=== PATIENT | male | born 1950 | race Hispanic/Latino ===

== ENCOUNTER 2022-01-21 21:07 | Inpatient (IN) | payer MEDICARE, OTHER ==
--- OUTSIDE RECORDS SUMMARY | 2022-01-21 21:11 | XMS REPORT | Continuity of Care Document ---
:1950 Author Organization [facility] t Address [address] [place] [address] Care Team Providers Name Role Phone Bindu Fisher Attending Clinician Unavailable Dwain_Nancy Attending Clinician Unavailable Dwain_R Admitting Clinician Unavailable Payers Payer Name Policy Type Policy Effective Date Expiration Date Sour ce Number [address] 2020 (MEDICARE 00:00:00 REPLACEMENT HMO) [address] 2020 [facility] 00:00:[address] 2020 [facility] 00:00:[address] 2020 [facility] 00:00:00 [facility] Problems Condition Condition Condition Status Onset Resolution Last Treating Co mments Source Name Details Category Date Date Treatment Clinician Date [id number] Temporary Problem Com mon low [facility] platelet - [facility] count [facility] Hearing Decreased Problem Commo n loss hearing of Spirit left ear [facility] Hyperlipid Hyperlipid Problem C [facility] emia emia [facility] [id number] Acute Problem Common seasonal [facility] allergic - [facility] rhinitis [facility] [id number] Decreased Problem Com mon hearing of [facility] right ear [facility] [id number] Gastroesop Problem Co mmon hageal [facility] reflux - [facility] disease [facility] esophagiti 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 Social History Social Habit Start Date Stop Date Quantity Comments Source History of Tobacco Use Co mmon [facility] Sex Assigned At Com mon [facility] Smoking Status Start Date Stop Date Source Never Smoker Common [facility] Medications Ordered Filled Start Stop Current Ordering Indication Dosage Frequency Signature Comments Components Source Medication Medication Date Date Medication? Clinician (SIG) Name Name Neomycin-Po Neomycin-Po No 4{drops TID Neomycin-P lymyxin-HC lymyxin-HC 3-09 _into_a olymyxin-H 3.576535-1 3.584905-0 00:00: ffected C 00 _ear} 3.5- 1 Neomycin-Po Neomycin-Po 2020- No 4{drops TID Neomycin-P lymyxin-HC lymyxin-HC 3-09 _into_a olymyxin-H 3.560655-3 3.525017-4 00:00: ffected C 00 _ear} 3.5- 1 Neomycin-Po Neomycin-Po 2020- No 4{drops TID Neomycin-P lymyxin-HC lymyxin-HC 3-09 _into_a olymyxin-H 3.558898-1 3.546512-6 00:00: ffected C 00 _ear} 3.5-- 1 Neomycin-Po Neomycin-Po 2020-0 No 4{drops TID Neomycin-P lymyxin-HC lymyxin-HC 3-09 _into_a olymyxin-H 3.520482-1 3.590488-0 00:00: ffected C 00 _ear} 3.5-- 1 Neomycin-Po Neomycin-Po 2020-0 No 4{drops TID Neomycin-P lymyxin-HC lymyxin-HC 3-09 _into_a olymyxin-H 3.580206-1 3.5-79614-5 00:00: ffected C 00 _ear} 3.5-- 1 Neomycin-Po Neomycin-Po 2020-0 No 4{drops TID Neomycin-P lymyxin-HC lymyxin-HC 3-09 _into_a olymyxin-H 3.5-93147-2 3.533662-2 00:00: ffected C 00 _ear} 3.5-- 1 Neomycin-Po Neomycin-Po 2020-0 No 4{drops TID Neomycin-P lymyxin-HC lymyxin-HC 3-09 _into_a olymyxin-H 3.540183-6 3.594065-5 00:00: ffected C 00 _ear} 3.5-- Neomycin-Po Neomycin-Po 2020-0 No 4{drops TID Neomycin-P lymyxin-HC lymyxin-HC 3-09 _into_a olymyxin-H 3.533106-2 3.5-82917-0 00:00: ffected C 00 _ear} 3.5-- Neomycin-Po Neomycin-Po 2020-0 No 4{drops TID Neomycin-P lymyxin-HC lymyxin-HC 3-09 _into_a olymyxin-H 3.544906-2 3.5-16119-7 00:00: ffected C 00 _ear} 3.5-- 1 Neomycin-Po Neomycin-Po 2020-0 No 4{drops TID Neomycin-P lymyxin-HC lymyxin-HC 3-09 _into_a olymyxin-H 3.554856-3 3.5-30141-6 00:00: ffected C 00 _ear} 3.5-- 1 Triamcinolo Triamcinolo Yes Na Fisher 1 Common ne ne 7-24 applicatio Spirit Acetonide Acetonide 00:00: n to - C HI 00 affected [facility] Triamcinolo Triamcinolo 2018- No 1{appli BID Triamcinol ne ne 7-24 cation_ one Acetonide Acetonide 00:00: to_affe Acetonide 0.1 % 0.1 % 00 cted_ar 0.1 % ea} Triamcinolo Triamcinolo 2019-0 No 1{appli BID Triamcinol ne ne 7-24 cation_ one Acetonide Acetonide 00:00: to_affe Acetonide 0.1 % 0.1 % 00 cted_ar 0.1 % ea} Triamcinolo Tricinolo 2019-0 No 1{appli BID Triamcinol ne ne 7-24 cation_ one Acetonide Acetonide 00:00: to_affe Acetonide 0.1 % 0.1 % 00 cted_ar 0.1 % ea} Kenalog Kenalog 2018-0 No 40mg Common (Triamcinol (Triamcinol 7-24 S pirit one) one) 00:00: - [facility] 2018-0 No 1{appli BID Triamcinol ne ne 7-24 cation_ one Acetonide Acetonide 00:00: to_affe Acetonide 0.1 % 0.1 % 00 cted_ar 0.1 % ea} Kenalog Kenalog 2018-0 No 40mg Common (Triamcinol (Triamcinol 7-24 S pirit one) one) 00:00: - [facility] 2018-0 No 1{appli BID Triamcinol ne ne 7-24 cation_ one Acetonide Acetonide 00:00: to_affe Acetonide 0.1 % 0.1 % 00 cted_ar 0.1 % ea} Kenalog Kenalog 2018-0 No 40mg Common (Triamcinol (Triamcinol 7-24 S pirit one) one) 00:00: - [facility] 2018-0 No 1{appli BID Triamcinol ne ne 7-24 cation_ one Acetonide Acetonide 00:00: to_affe Acetonide 0.1 % 0.1 % 00 cted_ar 0.1 % ea} Kenalog Kenalog 2019-0 No 40mg Common (Triamcinol (Triamcinol 7-24 S pirit one) one) 00:00: - [facility] 2019-0 No 1{appli BID Triamcinol ne ne 7-24 cation_ one Acetonide Acetonide 00:00: to_affe Acetonide 0.1 % 0.1 % 00 cted_ar 0.1 % ea} Kenalog Kenalog No 40mg Common (Triamcinol (Triamcinol 7-24 S pirit one) one) 00:00: - [facility]I 00 [facility] No 1{appli BID Triamcinol ne ne 7-24 cation_ one Acetonide Acetonide 00:00: to_affe Acetonide 0.1 % 0.1 % 00 cted_ar 0.1 % ea} Kenalog Kenalog No 40mg Common (Triamcinol (Triamcinol 7-24 S pirit one) one) 00:00: - [facility]I 00 [facility] No 1{appli BID Triamcinol ne ne 7-24 cation_ one Acetonide Acetonide 00:00: to_affe Acetonide 0.1 % 0.1 % 00 cted_ar 0.1 % ea} Kenalog Zacharyalog No 40mg Common (Triamcinol (Triamcinol 7-24 S pirit one) one) 00:00: - [facility] No 1{appli BID Triamcinol ne ne 7-24 cation_ one Acetonide Acetonide 00:00: to_affe Acetonide 0.1 % 0.1 % 00 cted_ar 0.1 % ea} Cetirizine Cetirizine Yes Na Fisher 1 tablet Common HCl HCl [facility] Flonase Flonase Yes Na Fisher 2 spray in Common each Spirit nostril [facility] Crestor Crestor Yes Na Fisher 1 tablet Co mmon [facility] Paroxetine Paroxetine Yes Na Fisher TAKE ONE Common HCl HCl TABLET BY Spirit MOUTH ONCE - CHI DAILY [facility] Pantoprazol Pantoprazol Yes Na Fisher 1 tablet Common e Sodium e Sodium [facility] Losartan Losartan Yes Na Fisher 1 tablet Common Potassium Potassium Spiri t [facility] Losartan Losartan Yes Na Fisher 1 tablet Common Potassium Potassium Spiri t - [facility] Cetirizine Cetirizine No 1{table Cetirizine HCl 10 MG HCl 10 MG t} HCl 10 MG Cetirizine Cetirizine No 1{table QD Cetirizine HCl 10 MG HCl 10 MG t} HCl 10 MG Losartan Losartan No 1{table QD Losartan Potassium Potassium t} Potassium 50 MG 50 MG 50 MG Flonase 50 Flonase 50 No 2{spray QD Flonase 50 MCG/ACT MCG/ACT _in_eac MCG/ACT h_nostr il} PARoxetine PARoxetine No QD PARoxetine HCl 20MG HCl 20MG HCl 20MG Pantoprazol Pantoprazol No 1{table QD Pantoprazo e Sodium 40 e Sodium 40 t} le Sodium MG MG 40 MG Losartan Losartan No 1{table QD Losartan Potassium Potassium t} Potassium 100 MG 100 MG 100 MG Rosuvastati Rosuvastati No Rosuvastat n Calcium n Calcium in Calcium 20 MG 20 MG 20 MG Crestor 20 Crestor 20 No 1{table QD Crestor 20 MG MG t} MG Pantoprazol Pantoprazol No Pantoprazo e Sodium 40 e Sodium 40 le Sodium MG MG 40 MG Flonase 50 Flonase 50 No 2{spray QD Flonase 50 MCG/ACT MCG/ACT _in_eac MCG/ACT h_nostr il} Cetirizine Cetirizine No 1{table Cetirizine HCl 10 MG HCl 10 MG t} HCl 10 MG Cetirizine Cetirizine No 1{table QD Cetirizine HCl 10 MG HCl 10 MG t} HCl 10 MG Losartan Losartan No 1{table QD Losartan Potassium Potassium t} Potassium 50 MG 50 MG 50 MG Flonase 50 Flonase 50 No 2{spray QD Flonase 50 MCG/ACT MCG/ACT _in_eac MCG/ACT h_nostr il} PARoxetine PARoxetine No QD PARoxetine HCl 20MG HCl 20MG HCl 20MG Pantoprazol Pantoprazol No 1{table QD Pantoprazo e Sodium 40 e Sodium 40 t} le Sodium MG MG 40 MG Losartan Losartan No 1{table QD Losartan Potassium Potassium t} Potassium 100 MG 100 MG 100 MG Rosuvastati Rosuvastati No Rosuvastat n Calcium n Calcium in Calcium 20 MG 20 MG 20 MG Crestor 20 Crestor 20 No 1{table QD Crestor 20 MG MG t} MG Pantoprazol Pantoprazol No Pantoprazo e Sodium 40 e Sodium 40 le Sodium MG MG 40 MG Flonase 50 Flonase 50 No 2{spray QD Flonase 50 MCG/ACT MCG/ACT _in_eac MCG/ACT h_nostr il} Pantoprazol Pantoprazol No Pantoprazo e Sodium 40 e Sodium 40 le Sodium MG MG 40 MG Flonase 50 Flonase 50 No 2{spray QD Flonase 50 MCG/ACT MCG/ACT _in_eac MCG/ACT h_nostr il} Rosuvastati Rosuvastati No Rosuvastat n Calcium n Calcium in Calcium 20 MG 20 MG 20 MG PARoxetine PARoxetine No QD PARoxetine HCl 20MG HCl 20MG HCl 20MG Pantoprazol Pantoprazol No 1{table QD Pantoprazo e Sodium 40 e Sodium 40 t} le Sodium MG MG 40 MG Crestor 20 Crestor 20 No 1{table QD Crestor 20 MG MG t} MG Losartan Losartan No Losartan Potassium Potassium Potassium 100 MG 100 MG 100 MG Flonase 50 Flonase 50 No 2{spray QD Flonase 50 MCG/ACT MCG/ACT _in_eac MCG/ACT h_nostr il} Losartan Losartan No 1{table QD Losartan Potassium Potassium t} Potassium 100 MG 100 MG 100 MG Losartan Losartan No 1{table QD Losartan Potassium Potassium t} Potassium 50 MG 50 MG 50 MG Cetirizine Cetirizine No 1{table Cetirizine HCl 10 MG HCl 10 MG t} HCl 10 MG Cetirizine Cetirizine No 1{table QD Cetirizine HCl 10 MG HCl 10 MG t} HCl 10 MG Pantoprazol Pantoprazol No Pantoprazo e Sodium 40 e Sodium 40 le Sodium MG MG 40 MG Flonase 50 Flonase 50 No 2{spray QD Flonase 50 MCG/ACT MCG/ACT _in_eac MCG/ACT h_nostr il} Rosuvastati Rosuvastati No Rosuvastat n Calcium n Calcium in Calcium 20 MG 20 MG 20 MG PARoxetine PARoxetine No QD PARoxetine HCl 20MG HCl 20MG HCl 20MG Pantoprazol Pantoprazol No 1{table QD Pantoprazo e Sodium 40 e Sodium 40 t} le Sodium MG MG 40 MG Crestor 20 Crestor 20 No 1{table QD Crestor 20 MG MG t} MG Losartan Losartan No Losartan Potassium Potassium Potassium 100 MG 100 MG 100 MG Flonase 50 Flonase 50 No 2{spray QD Flonase 50 MCG/ACT MCG/ACT _in_eac MCG/ACT h_nostr il} Losartan Losartan No 1{table QD Losartan Potassium Potassium t} Potassium 100 MG 100 MG 100 MG Losartan Losartan No 1{table QD Losartan Potassium Potassium t} Potassium 50 MG 50 MG 50 MG Cetirizine Cetirizine No 1{table Cetirizine HCl 10 MG HCl 10 MG t} HCl 10 MG Cetirizine Cetirizine No 1{table QD Cetirizine HCl 10 MG HCl 10 MG t} HCl 10 MG Losartan Losartan No Losartan Potassium Potassium Potassium 100 MG 100 MG 100 MG Losartan Losartan No 1{table QD Losartan Potassium Potassium t} Potassium 50 MG 50 MG 50 MG Losartan Losartan No 1{table QD Losartan Potassium Potassium t} Potassium 100 MG 100 MG 100 MG Rosuvastati Rosuvastati No Rosuvastat n Calcium n Calcium in Calcium 20 MG 20 MG 20 MG Crestor 20 Crestor 20 No 1{table QD Crestor 20 MG MG t} MG Pantoprazol Pantoprazol No 1{table QD Pantoprazo e Sodium 40 e Sodium 40 t} le Sodium MG MG 40 MG Cetirizine Cetirizine No 1{table QD Cetirizine HCl 10 MG HCl 10 MG t} HCl 10 MG Flonase 50 Flonase 50 No 2{spray QD Flonase 50 MCG/ACT MCG/ACT _in_eac MCG/ACT h_nostr il} Flonase 50 Flonase 50 No 2{spray QD Flonase 50 MCG/ACT MCG/ACT _in_eac MCG/ACT h_nostr il} PARoxetine PARoxetine No QD PARoxetine HCl 20MG HCl 20MG HCl 20MG Pantoprazol Pantoprazol No Pantoprazo e Sodium 40 e Sodium 40 le Sodium MG MG 40 MG Cetirizine Cetirizine No 1{table Cetirizine HCl 10 MG HCl 10 MG t} HCl 10 MG Losartan Losartan No Losartan Potassium Potassium Potassium 100 MG 100 MG 100 MG Losartan Losartan No 1{table QD Losartan Potassium Potassium t} Potassium 50 MG 50 MG 50 MG Crestor 20 Crestor 20 No 1{table QD Crestor 20 MG MG t} MG Rosuvastati Rosuvastati No Rosuvastat n Calcium n Calcium in Calcium 20 MG 20 MG 20 MG Losartan Losartan No 1{table QD Losartan Potassium Potassium t} Potassium 100 MG 100 MG 100 MG Pantoprazol Pantoprazol No 1{table QD Pantoprazo e Sodium 40 e Sodium 40 t} le Sodium MG MG 40 MG Cetirizine Cetirizine No 1{table QD Cetirizine HCl 10 MG HCl 10 MG t} HCl 10 MG Flonase 50 Flonase 50 No 2{spray QD Flonase 50 MCG/ACT MCG/ACT _in_eac MCG/ACT h_nostr il} Flonase 50 Flonase 50 No 2{spray QD Flonase 50 MCG/ACT MCG/ACT _in_eac MCG/ACT h_nostr il} PARoxetine PARoxetine No QD PARoxetine HCl 20MG HCl 20MG HCl 20MG Pantoprazol Pantoprazol No Pantoprazo e Sodium 40 e Sodium 40 le Sodium MG MG 40 MG Cetirizine Cetirizine No 1{table Cetirizine HCl 10 MG HCl 10 MG t} HCl 10 MG Flonase 50 Flonase 50 No 2{spray QD Flonase 50 MCG/ACT MCG/ACT _in_eac MCG/ACT h_nostr il} Cetirizine Cetirizine No 1{table QD Cetirizine HCl 10 MG HCl 10 MG t} HCl 10 MG Losartan Losartan No Losartan Potassium Potassium Potassium 100 MG 100 MG 100 MG Rosuvastati Rosuvastati No Rosuvastat n Calcium n Calcium in Calcium 20 MG 20 MG 20 MG Crestor 20 Crestor 20 No 1{table QD Crestor 20 MG MG t} MG Losartan Losartan No 1{table QD Losartan Potassium Potassium t} Potassium 100 MG 100 MG 100 MG PARoxetine PARoxetine No QD PARoxetine HCl 20MG HCl 20MG HCl 20MG Pantoprazol Pantoprazol No 1{table QD Pantoprazo e Sodium 40 e Sodium 40 t} le Sodium MG MG 40 MG Flonase 50 Flonase 50 No 2{spray QD Flonase 50 MCG/ACT MCG/ACT _in_eac MCG/ACT h_nostr il} PARoxetine PARoxetine No QD PARoxetine HCl 20MG HCl 20MG HCl 20MG Losartan Losartan No 1{table QD Losartan Potassium Potassium t} Potassium 50 MG 50 MG 50 MG Pantoprazol Pantoprazol No Pantoprazo e Sodium 40 e Sodium 40 le Sodium MG MG 40 MG Cetirizine Cetirizine No 1{table Cetirizine HCl 10 MG HCl 10 MG t} HCl 10 MG Flonase 50 Flonase 50 No 2{spray QD Flonase 50 MCG/ACT MCG/ACT _in_eac MCG/ACT h_nostr il} Cetirizine Cetirizine No 1{table QD Cetirizine HCl 10 MG HCl 10 MG t} HCl 10 MG Losartan Losartan No Losartan Potassium Potassium Potassium 100 MG 100 MG 100 MG Rosuvastati Rosuvastati No Rosuvastat n Calcium n Calcium in Calcium 20 MG 20 MG 20 MG Crestor 20 Crestor 20 No 1{table QD Crestor 20 MG MG t} MG Losartan Losartan No 1{table QD Losartan Potassium Potassium t} Potassium 100 MG 100 MG 100 MG PARoxetine PARoxetine No QD PARoxetine HCl 20MG HCl 20MG HCl 20MG Pantoprazol Pantoprazol No 1{table QD Pantoprazo e Sodium 40 e Sodium 40 t} le Sodium MG MG 40 MG Flonase 50 Flonase 50 No 2{spray QD Flonase 50 MCG/ACT MCG/ACT _in_eac MCG/ACT h_nostr il} PARoxetine PARoxetine No QD PARoxetine HCl 20MG HCl 20MG HCl 20MG Losartan Losartan No 1{table QD Losartan Potassium Potassium t} Potassium 50 MG 50 MG 50 MG Pantoprazol Pantoprazol No Pantoprazo e Sodium 40 e Sodium 40 le Sodium MG MG 40 MG Cetirizine Cetirizine No 1{table Cetirizine HCl 10 MG HCl 10 MG t} HCl 10 MG Flonase 50 Flonase 50 No 2{spray QD Flonase 50 MCG/ACT MCG/ACT _in_eac MCG/ACT h_nostr il} Cetirizine Cetirizine No 1{table QD Cetirizine HCl 10 MG HCl 10 MG t} HCl 10 MG Losartan Losartan No Losartan Potassium Potassium Potassium 100 MG 100 MG 100 MG Rosuvastati Rosuvastati No Rosuvastat n Calcium n Calcium in Calcium 20 MG 20 MG 20 MG Crestor 20 Crestor 20 No 1{table QD Crestor 20 MG MG t} MG Losartan Losartan No 1{table QD Losartan Potassium Potassium t} Potassium 100 MG 100 MG 100 MG PARoxetine PARoxetine No QD PARoxetine HCl 20MG HCl 20MG HCl 20MG Pantoprazol Pantoprazol No 1{table QD Pantoprazo e Sodium 40 e Sodium 40 t} le Sodium MG MG 40 MG Flonase 50 Flonase 50 No 2{spray QD Flonase 50 MCG/ACT MCG/ACT _in_eac MCG/ACT h_nostr il} PARoxetine PARoxetine No QD PARoxetine HCl 20MG HCl 20MG HCl 20MG Losartan Losartan No 1{table QD Losartan Potassium Potassium t} Potassium 50 MG 50 MG 50 MG Pantoprazol Pantoprazol No Pantoprazo e Sodium 40 e Sodium 40 le Sodium MG MG 40 MG Cetirizine Cetirizine No 1{table Cetirizine HCl 10 MG HCl 10 MG t} HCl 10 MG Losartan Losartan No 1{table QD Losartan Potassium Potassium t} Potassium 50 MG 50 MG 50 MG Cetirizine Cetirizine No 1{table QD Cetirizine HCl 10 MG HCl 10 MG t} HCl 10 MG Rosuvastati Rosuvastati No Rosuvastat n Calcium n Calcium in Calcium 20 MG 20 MG 20 MG Cetirizine Cetirizine No 1{table Cetirizine HCl 10 MG HCl 10 MG t} HCl 10 MG Flonase 50 Flonase 50 No 2{spray QD Flonase 50 MCG/ACT MCG/ACT _in_eac MCG/ACT h_nostr il} Losartan Losartan No 1{table QD Losartan Potassium Potassium t} Potassium 100 MG 100 MG 100 MG PARoxetine PARoxetine No QD PARoxetine HCl 20MG HCl 20MG HCl 20MG Pantoprazol Pantoprazol No Pantoprazo e Sodium 40 e Sodium 40 le Sodium MG MG 40 MG Flonase 50 Flonase 50 No 2{spray QD Flonase 50 MCG/ACT MCG/ACT _in_eac MCG/ACT h_nostr il} Pantoprazol Pantoprazol No 1{table QD Pantoprazo e Sodium 40 e Sodium 40 t} le Sodium MG MG 40 MG Immunizations Ordered Immunization Filled Immunization Date Status Commen ts Source Name Name FluADOLFO FluAD 2021-01-23 Completed [facility] 11:27:00 [facility] FluAD FluAD 2021-01-23 Completed [facility] 11:27:00 - [facility] FluAD FluAD 2021-01-23 Completed [facility] 11:27:00 - [facility] FluAD FluAD 2021-01-23 Completed [facility] 11:27:00 - [facility] FluAD FluAD 2021-01-23 Completed [facility] 11:27:00 - [facility] FluAD FluAD 2021-01-23 Completed [facility] 11:27:00 - [facility] FluAD FluAD 2021-01-23 Completed [facility] 11:27:00 - [facility] FluAD FluAD 2021-01-23 Completed [facility] 11:27:00 - [facility] FluAD FluAD 2021-01-23 Completed [facility] 11:27:00 - [facility] FLUZONE HIGH DOSE FLUZONE HIGH DOSE 2020-01-19 Completed [facility] OVER 65 OVER 65 10:37:00 - [facility] FLUZONE HIGH DOSE FLUZONE HIGH DOSE 2020-01-19 Completed [facility] OVER 65 OVER 65 10:37:00 [facility] FLUZONE HIGH DOSE FLUZONE HIGH DOSE 2020-01-19 Completed [facility] OVER 65 OVER 65 10:37:00 - [facility] FLUZONE HIGH DOSE FLUZONE HIGH DOSE 2020-01-19 Completed [facility] OVER 65 OVER 65 10:37:00 - [facility] FLUZONE HIGH DOSE FLUZONE HIGH DOSE 2020-01-19 Completed [facility] OVER 65 OVER 65 10:37:00 - [facility] FLUZONE HIGH DOSE FLUZONE HIGH DOSE 2020-01-19 Completed [facility] OVER 65 OVER 65 10:37:00 - [facility] FLUZONE HIGH DOSE FLUZONE HIGH DOSE 2020-01-19 Completed [facility] OVER 65 OVER 65 10:37:00 - [facility] FLUZONE HIGH DOSE FLUZONE HIGH DOSE 2020-01-19 Completed [facility] OVER 65 OVER 65 10:37:00 [facility] FLUZONE HIGH DOSE FLUZONE HIGH DOSE 2020-01-19 Completed [facility] OVER 65 OVER 65 10:37:00 - [facility] FLUZONE HIGH DOSE FLUZONE HIGH DOSE 2020-01-19 Completed [facility] OVER 65 OVER 65 10:37:00 - [facility] Tdap - Tdap - 2018-11-24 Completed [facility] 14:05:00 - [facility] Tdap - Tdap - 2018-11-24 Completed [facility] 14:05:00 - [facility] Tdap - Tdap - 2018-11-24 Completed [facility] 14:05:00 - [facility] Tdap - Tdap - 2018-11-24 Completed [facility] 14:05:00 - [facility] Tdap - Tdap - 2018-11-24 Completed [facility] 14:05:00 - [facility] Tdap - Tdap - 2018-11-24 Completed [facility] 14:05:00 - [facility] Tdap - Tdap - 2018-11-24 Completed [facility] 14:05:00 - [facility] Tdap - Tdap - 2018-11-24 Completed [facility] 14:05:00 - [facility] Tdap - Tdap - 2018-11-24 Completed [facility] 14:05:00 - [facility] Tdap - Tdap - 2018-11-24 Completed [facility] 14:05:00 - [facility] FLUZONE HIGH DOSE FLUZONE HIGH DOSE 2018-11-24 Completed [facility] OVER 65 OVER 65 14:04:00 - [facility] FLUZONE HIGH DOSE FLUZONE HIGH DOSE 2018-11-24 Completed [facility] OVER 65 OVER 65 14:04:00 - [facility] FLUZONE HIGH DOSE FLUZONE HIGH DOSE 2018-11-24 Completed [facility] OVER 65 OVER 65 14:04:00 - [facility] FLUZONE HIGH DOSE FLUZONE HIGH DOSE 2018-11-24 Completed [facility] OVER 65 OVER 65 14:04:00 - [facility] FLUZONE HIGH DOSE FLUZONE HIGH DOSE 2018-11-24 Completed [facility] OVER 65 OVER 65 14:04:00 - [facility] FLUZONE HIGH DOSE FLUZONE HIGH DOSE 2018-11-24 Completed [facility] OVER 65 OVER 65 14:04:00 - [facility] FLUZONE HIGH DOSE FLUZONE HIGH DOSE 2018-11-24 Completed [facility] OVER 65 OVER 65 14:04:00 - [facility] FLUZONE HIGH DOSE FLUZONE HIGH DOSE 2018-11-24 Completed [facility] OVER 65 OVER 65 14:04:00 - [facility] FLUZONE HIGH DOSE FLUZONE HIGH DOSE 2018-11-24 Completed [facility] OVER 65 OVER 65 14:04:00 - [facility] FLUZONE HIGH DOSE FLUZONE HIGH DOSE 2018-11-24 Completed [facility] OVER 65 OVER 65 14:04:00 - [facility] Vital Signs Vital Name Observation Time Observation Value Comments Source height 2021-08-07 13:20:00 69 [in_i] Common [facility] weight 2021-08-07 13:20:00 200.4 [lb_av] [facility] temperature 2021-08-07 13:20:00 98.0 [degF] [facility] bmi 2021-08-07 13:20:00 29.59 kg/m2 [facility] oximetry 2021-08-07 13:20:00 97 % [facility] respiratory rate 2021-08-07 13:20:00 16 /min Comm on [facility] blood pressure 2021-08-07 13:20:00 136 mm[Hg] Common [facility] - systolic [facility] blood pressure 2021-08-07 13:20:00 80 mm[Hg] Common [facility] - diastolic [facility] height 2021-04-27 11:20:00 69 [in_i] [facility] weight 2021-04-27 11:20:00 202.2 [lb_av] [facility] temperature 2021-04-27 11:20:00 97.7 [degF] [facility] bmi 2021-04-27 11:20:00 29.86 kg/m2 [facility] oximetry 2021-04-27 11:20:00 96 % [facility] respiratory rate 2021-04-27 11:20:00 16 /min Comm on [facility] blood pressure 2021-04-27 11:20:00 130 mm[Hg] [facility] - systolic [facility] blood pressure 2021-04-27 11:20:00 80 mm[Hg] [facility] - diastolic [facility] height 2021-01-23 11:40:00 69 [in_i] Common S pirit [facility] weight 2021-01-23 11:40:00 200 [lb_av] [facility] temperature 2021-01-23 11:40:00 97 [degF] Common S pirit [facility] bmi 2021-01-23 11:40:00 29.53 kg/m2 Common S [facility] oximetry 2021-01-23 11:40:00 96 % Common [facility] blood pressure 2021-01-23 11:40:00 139 mm[Hg] Common [facility] - systolic [facility] blood pressure 2021-01-23 11:40:00 85 mm[Hg] [facility] - diastolic [facility] height 2021-01-23 10:00:00 69 [in_i] Common [facility] weight 2021-01-23 10:00:00 200 [lb_av] Common [facility] temperature 2021-01-23 10:00:00 97 [degF] Common [facility] bmi 2021-01-23 10:00:00 29.53 kg/m2 Common [facility] oximetry 2021-01-23 10:00:00 96 % [facility] respiratory rate 2021-01-23 10:00:00 18 /min [facility] [facility] blood pressure 2021-01-23 10:00:00 139 mm[Hg] [facility] - [facility] blood pressure 2021-01-23 10:00:00 85 mm[Hg] [facility] - diastolic [facility] Procedures This patient has no known procedures. Encounters Start End Encounter Admission Attending Care Care Encounter Source Date/Time Date/Time Type Type Clinicians Facility Department ID 2021-11-22 Outpatient Fisher, Na STLMLC STLMLC [id number] 2 Common 14:40:00 [facility] 2021-09-25 Outpatient Fisher, Na STLMLC STLMLC [id number] 2 Common 13:01:00 [facility] 2021-06-26 Outpatient Fisher, Na STLMLC STLMLC [id number] 2 Common 11:20:01 [facility] 2021-04-11 Outpatient Fisher, Na STLMLC STLMLC [id number] 2 Common 14:06:06 [id number] [facility] 2021-04-11 Outpatient Fisher, Na STLMLC STLMLC [id number] 2 Common 13:34:54 [id number] [facility] 2021-04-11 Outpatient Fisher, Na STLMLC STLMLC [id number] 2 Common 12:52:55 [id number] [facility] 2021-04-11 Outpatient Fisher, Na STLMLC STLMLC [id number] 2 Common 12:38:07 [id number] [facility] 2021-04-11 Outpatient Fisher, Na STLMLC STLMLC [id number] 2 Common 12:36:41 [id number] [facility] 2021-04-11 Outpatient Fisher, Na STLMLC STLMLC [id number] 2 Common 12:22:41 [id number] [facility] 2021-04-11 Outpatient Fisher, Na STLMLC STLMLC [id number] 2 Common 11:19:25 [id number] [facility] 2021-04-11 Outpatient Fisher, Na STLMLC STLMLC [id number] 2 Common 11:18:10 [id number] [facility] 2021-04-11 Outpatient Fisher, Na STLMLC STLMLC [id number] 2 Common 11:03:44 [id number] [facility] 2021-11-26 2021-11-26 (TEL) STLMLC STLMLC [id number] Co mmon 00:00:00 00:00:00 [facility] 2021-11-26 2021-11-26 OL DIG E/M STLMLC STLMLC [id number] Common 00:00:00 00:00:00 SVC 11-20 Spir it MIN - [facility] 2021-09-28 2021-09-28 Outpatient Adams_R DMG DMG [id number] [facility] 03:28:00 03:28:00 0715 [facility] 2021-08-23 2021-08-23 (TEL) STLMLC STLMLC [id number] Co mmon 00:00:00 00:00:00 [facility] 2021-08-07 2021-08-07 OFFICE STLMLC STLMLC [id number] Co mmon 00:00:00 00:00:00 VISIT [facility] ESTAB PT - [facility] LEVEL 4 [facility] 2021-06-20 2021-06-20 (TEL) STLMLC STLMLC [id number] Co mmon 00:00:00 00:00:00 [facility] 2021-04-27 2021-04-27 OFFICE STLMLC STLMLC [id number] Co mmon 00:00:00 00:00:00 VISIT [facility] ESTAB PT - [facility] LEVEL 4 [facility] 2021-04-20 2021-04-20 Outpatient Adams_R DMG DMG [id number] [facility] 01:29:00 01:29:00 0204 [facility] 2021-03-20 2021-03-20 Outpatient Adams_R DMG DMG [id number] [facility] 03:12:00 03:12:00 0104 [facility] 2021-01-23 2021-01-23 OFFICE STLMLC STLMLC [id number] Co mmon 00:00:00 00:00:00 VISIT EST Spir it PT LEVEL 3 - [facility] 2021-01-23 2021-01-23 SUB ANNUAL STLMLC STLMLC [id number] Common 00:00:00 00:00:00 MCR [facility] WELLNESS - [facility] VISIT [facility] 2021-01-11 2021-01-11 (TEL) STLMLC STLMLC [id number] Co mmon 00:00:00 00:00:00 [facility] 2020-10-23 2020-10-23 Outpatient STLMLC STLMLC [id number] Common 00:00:00 00:00:00 [facility] 2020-08-25 2020-08-25 Outpatient STLMLC STLMLC [id number] Common 00:00:00 00:00:00 [facility] 2020-08-17 2020-08-17 Outpatient DMG [facility] [id number] Devoted 06:00:00 06:00:00 0603 [facility] 2020-08-14 2020-08-14 Outpatient DMG [facility] [id number] Devoted 08:00:00 08:00:00 0531 [facility] 2020-08-03 2020-08-03 Outpatient DMG [facility] [id number] Dev[facility] 11:00:00 11:00:00 0520 [facility] 2020-07-25 2020-07-25 Outpatient STLMLC STLMLC [id number] Common 00:00:00 00:00:00 [facility] 2020-06-17 2020-06-17 Outpatient DMG [facility] [id number] Devoted 06:00:00 06:00:00 0403 [facility] 2020-06-14 2020-06-14 Outpatient DMG [facility] [id number] Devoted 08:01:00 08:01:00 0331 [facility] 2020-05-23 2020-05-23 Outpatient STLMLC STLMLC [id number] Common 00:00:00 00:00:00 [facility] 2019-07-25 2019-07-25 [facility] [id number] Common 17:34:00 17:34:[address] [facility] 2019-07-12 2019-07-12 [facility] [id number] Common 14:15:00 14:15:[address] [facility] 2019-04-13 2019-04-13 [facility] [id number] Common 10:00:00 10:00:[address] [facility] 2019-04-05 2019-04-05 [facility] [id number] Common 16:19:00 16:19:[address] [facility] 2019-01-11 2019-01-11 [facility] [id number] Common 10:00:00 10:00:[address] [facility] 2018-10-07 2018-10-07 [facility] [id number] Common 10:20:00 10:20:[address] [facility] 2018-09-30 2018-09-30 [facility] [id number] Common 14:04:00 14:04:[address] [facility] 2018-07-02 2018-07-02 [facility] [id number] Common 11:40:00 11:40:[address] [facility] 2018-04-07 2018-04-07 [facility] [id number] Common 10:15:00 10:15:[address] [facility] Results Test Description Test Time Test Comments Results Result Comments Source SARS-COV 2 Antigen SARS-COV 2 Antigen SARS-COV 2 Antigen SARS-COV 2 Antigen
--- NOTE | 2022-01-21 21:58 | RAD REPORT ---
EXAM DESCRIPTION: CT - Head Brain Wo Cont - 01/21/2022 9:41 pm CLINICAL HISTORY: Headache, confusioncommonly this COMPARISON: <Comparisons> TECHNIQUE: Axial 5 mm thick images of the head were obtained without IV contrast. All CT scans are performed using dose optimization technique as appropriate and may include automated exposure control or mA/KV adjustment according to patient size. FINDINGS: No intracranial hemorrhage, mass, edema or shift of mid-line structures. No acute infarcti on changes seen. No abnormal extra-axial fluid collections. Ventricles are normal. Arterial calcifica tions are present. Mastoid air cells and visualized portions of the paranasal sinuses are clear. No acute bony findings. Findings telephoned to Dr. Urbina 2154 hours IMPRESSION: Negative non-contrast CT head examination for acute finding.
[2022-01-21 22:19] LABS: Absolute Lymphocytes (CBC) 0.9 K/uL (0.7-4.9); Hematocrit 35.3 % (39.6-49.0); Lymphocytes % 17.1 % (15.3-44.8); MPV 10.1 fL (7.6-11.3); RBC Red Blood Cell Count 3.92 M/uL (4.33-5.43)
--- NOTE | 2022-01-21 22:20 | RAD REPORT ---
EXAM DESCRIPTION: RAD - Chest Single View - 01/21/2022 9:56 pm CLINICAL HISTORY: TRAUMA COMPARISON: None TECHNIQUE: AP portable chest image was obtained 01/21/2022 9:56 pm . FINDINGS: Lung volumes are low. Parenchymal stranding is seen in each lung base probably atelectasis from shallow inspiration. No significant failure or volume overload. Heart and vasculature are normal. No measurable pleural effusion and no pneumothorax. No acute bony abnormality seen. No acute aortic findings suspected. IMPRESSION: Patchy lung base atelectasis. Acute infiltrate is not suspected.
[2022-01-21 22:31] LABS: Potassium 3.7 mmol/L (3.5-5.1); Troponin High Sensitivity 32.8 pg/mL (<58.9)
--- NOTE | 2022-01-21 23:03 | EDPHYS ---
Physician Documentation [facility] Name: Tim Reyes Age: 71 yrs Sex: Male : 1950 Arrival Date: 01/21/2022 Time: 21:10 Bed 4 Private MD: ED Physician Lamar Urbina HPI: 01/21 21:34 This 71 yrs old Male presents to ER via Unassigned with complaints of General sp3 Weakness. 21:35 71-year-old male with history of hypertension presents with 3 days of increasing sp3 confusion, complaints of "tingliness" throughout his body, mild headache. Per note from his which his son-in-law brought in, patient sustained a ground-level mechanical fall on January 18 while carrying groceries into the house from [facility] which was not a hard fall and patient had no head injury or any other severe injury at that time. Subsequent to that, he has had vague symptoms increasing confusion. Family brings him in for evaluation of the symptoms. Denies neck pain, chest pain, shortness breath, back pain, abdominal pain, nausea, vomiting, diarrhea, focal weakness change in gait, or any other symptoms on ROS at this time.. Historical: - Allergies: 21:41 No Known Allergies; kl - Home Meds: 21:41 paroxetine HCl 20 mg oral tab 1 tab once daily [Active]; losartan 100 mg oral tab 1 tab kl once daily [Active]; Protonix 40 mg Oral TbEC 1 tab once daily [Active]; rosuvastatin 20 mg oral tab 1 tab once daily [Active]; - PMHx: 21:41 Hypertensive disorder; kl - Immunization history:: Adult Immunizations up to date. - Social history:: Smoking status: Patient denies any tobacco usage or history of. ROS: 21:38 Constitutional: Negative for fever, chills, and weight loss, Eyes: Negative for injury, sp3 pain, redness, and discharge, ENT: Negative for injury, pain, and discharge, Neck: Negative for injury, pain, and swelling, Cardiovascular: Negative for chest pain, palpitations, and edema, Respiratory: Negative for shortness of breath, cough, wheezing, and pleuritic chest pain, Abdomen/GI: Negative for abdominal pain, nausea, vomiting, diarrhea, and constipation, Back: Negative for injury and pain, MS/Extremity: Negative for injury and deformity, Skin: Negative for injury, rash, and discoloration, Psych: Negative for depression, anxiety, suicide ideation, homicidal ideation, and hallucinations, Allergy/Immunology: Negative for hives, rash, and allergies, Endocrine: Negative for neck swelling, polydipsia, polyuria, polyphagia, and marked weight changes. 21:38 All other systems are negative. Exam: 21:40 Constitutional: This is a well developed, well nourished patient who is awake, alert, sp3 and in no acute distress. Head/Face: Normocephalic, atraumatic. Eyes: Pupils equal round and reactive to light, extra-ocular motions intact. Lids and lashes normal. Conjunctiva and sclera are non-icteric and not injected. Cornea within normal limits. Periorbital areas with no swelling, redness, or edema. ENT: Nares patent. No nasal discharge, no septal abnormalities noted. External auditory canals are clear. Oropharynx with no redness, swelling, or masses, exudates, or evidence of obstruction, uvula midline. Mucous membranes moist. Neck: Trachea midline, no thyromegaly or masses palpated, and no cervical lymphadenopathy. Supple, full range of motion without nuchal rigidity, or vertebral point tenderness. No Meningismus. Chest/axilla: Normal chest wall appearance and motion. Nontender with no deformity. No lesions are appreciated. Cardiovascular: Regular rate and rhythm with a normal S1 and S2. No gallops, murmurs, or rubs. Normal PMI, no JVD. No pulse deficits. Respiratory: Lungs have equal breath sounds bilaterally, clear to auscultation and percussion. No rales, rhonchi or wheezes noted. No increased work of breathing, no retractions or nasal flaring. Back: No spinal tenderness. No costovertebral tenderness. Full range of motion. Skin: Warm, dry with normal turgor. Normal color with no rashes, no lesions, and no evidence of cellulitis. MS/ Extremity: Pulses equal, no cyanosis. Neurovascular intact. Full, normal range of motion. Neuro: Awake and alert, GCS 15, oriented to person, place, time, and situation. Cranial nerves II-XII grossly intact. Motor strength 5/5 in all extremities. Sensory grossly intact. Cerebellar exam normal. Normal gait. Psych: Awake, alert, with orientation to person, place and time. Behavior, mood, and affect are within normal limits. 21:40 Neuro: Patient is alert and oriented x4, family states that his responses are slower than normal which demonstrates change from baseline.. 23:38 ECG was reviewed by the Attending Physician. EG demonstrates normal sinus rhythm at 96 sp3 bpm with normal intervals, normal QRS, normal axis, nonspecific diffuse ST/T changes without evidence of ischemia. Mild Q waves in lead III are present without any other changes. Vital Signs: 21:33 BP 122 / 63; Pulse 82; Resp 20; Temp 97.9(O); Pulse Ox 100% on R/A; kl 22:31 BP 106 / 65; Pulse 92; Resp 16; Pulse Ox 100% on R/A; kl 22:53 BP 109 / 80; Pulse 92; Resp 24; Pulse Ox 100% on R/A; ll3 01/22 00:08 BP 123 / 71; Pulse 94; Resp 20; Pulse Ox 97% on R/A; kl MDM: 01/21 21:27 Patient medically screened. sp3 21:41 Data reviewed: vital signs, nurses notes. ED course: 31-year-old male with history of sp3 hypertension now with slow episodic confusion, slowness subsequent to mechanical ground-level fall 3 days ago. Differential diagnosis includes traumatic injury although less likely on the differential given no significant head injury. Differential also includes ischemic CVA, hemorrhagic CVA, delirium, embolic disease, infectious process. I am not highly concerned for ACS, PE, sepsis, shock at this time. We will obtain CT scan of the head, laboratory values, and general observation. Disposition pending diagnostics with possible admission for MRI and stroke work-up.. 23:00 ED course: Acute with sodium of 128 and creatinine of 2.96 likely representing acute sp3 renal failure. Patient at this time will be admitted for further work-up of various electrolyte abnormalities.. 01/21 21:28 Order name: Basic Metabolic Panel; Complete Time: 23:00 sp3 01/21 21:28 Order name: CBC with Diff; Complete Time: 01:12 sp3 01/21 21:28 Order name: High Sensitivity Troponin; Complete Time: 23:00 sp3 01/21 21:28 Order name: Protime (+inr); Complete Time: 23:28 sp3 01/21 21:28 Order name: Ptt, Activated; Complete Time: 23:28 sp3 01/21 22:17 Order name: Glucose, Ancillary Testing; Complete Time: 23:00 EDMS 01/21 21:28 Order name: Stroke CXR 1 View; Complete Time: 23:00 sp3 01/21 21:28 Order name: EKG; Complete Time: 21:29 sp3 01/21 21:28 Order name: CT Head Brain wo Cont; Complete Time: 23:00 sp3 01/21 22:26 Order name: CBC Smear Scan; Complete Time: 01:12 EDMS 01/21 23:12 Order name: SARS-COV-2 Antigen Rapid; Complete Time: 01:12 wm 01/21 23:39 Order name: Urine Microscopic Only la1 01/21 21:28 Order name: Accucheck; Complete Time: 22:08 sp3 01/21 21:28 Order name: Cardiac monitoring; Complete Time: 22:08 sp3 01/21 21:28 Order name: EKG - Nurse/Tech; Complete Time: 22:09 sp3 01/21 21:28 Order name: IV Saline Lock; Complete Time: 22:09 sp3 01/21 21:28 Order name: Labs collected and sent; Complete Time: 22:09 sp3 01/21 21:28 Order name: NPO; Complete Time: 22:09 sp3 01/21 21:28 Order name: O2 Per Protocol; Complete Time: 21:48 sp3 01/21 21:28 Order name: O2 Sat Monitoring; Complete Time: 21:48 sp3 Administered Medications: 23:51 Drug: NS 0.9% 500 ml Route: IV; Rate: bolus; Site: right antecubital; ll3 01/22 01:03 Drug: NS 0.9% 1000 ml Route: IV; Rate: 75 ml/hr; Site: right antecubital; Disposition Summary: 01/21/22 23:03 Hospitalization Ordered Hospitalization Status: Inpatient Admission sp3 Provider: Duane Magana sp3 Location: Telemetry/MedSur (Inpatient) sp3 Condition: Stable sp3 Problem: new sp3 Symptoms: are unchanged sp3 Bed/Room Type: Standard sp3 Room Assignment: 214(01/22/22 00:38) mw Diagnosis - Hyponatremia, Renal failure sp3 Forms: - Medication Reconciliation Form sp3 - SBAR form sp3 Signatures: Dispatcher [employer] Nevin Lazar RN RN kl Webb, Martha, RN RN mw Attema, Lee, BEN-C [id number] Lamar Urbina MD MD sp3 Bubba Clemons RN RN ll3 Corrections: (The following items were deleted from the chart) 00:38 01/21 23:03 michael murphy
--- NOTE | 2022-01-21 23:03 | ER ---
Nurse's Notes [facility] Name: Tim Reyes Age: 71 yrs Sex: Male : 1950 Arrival Date: 01/21/2022 Time: 21:10 Bed 4 [facility] MD: Diagnosis: Hyponatremia, Renal failure Presentation: 01/21 21:33 Chief complaint: Patient states: dizziness off and on after receiving a flu shot today kl reports previous fall after tripping over grocery bags. Coronavirus screen: Vaccine status: Patient reports receiving the 2nd dose of the covid vaccine. Ebola Screen: Patient negative for fever greater than or equal to 101.5 degrees Fahrenheit, and additional compatible Ebola Virus Disease symptoms. Initial Sepsis Screen: Does the patient meet any 2 criteria? No. Patient's initial sepsis screen is negative. Does the patient have a suspected source of infection? No. Patient's initial sepsis screen is negative. Risk Assessment: Do you want to hurt yourself or someone else? Patient reports no desire to harm self or others. 21:33 Method Of Arrival: Ambulatory 21:33 Acuity: HANG 3 kl Historical: - Allergies: 21:41 No Known Allergies; kl - Home Meds: 21:41 paroxetine HCl 20 mg oral tab 1 tab once daily [Active]; losartan 100 mg oral tab 1 tab kl once daily [Active]; Protonix 40 mg Oral TbEC 1 tab once daily [Active]; rosuvastatin 20 mg oral tab 1 tab once daily [Active]; - PMHx: 21:41 Hypertensive disorder; kl - Immunization history:: Adult Immunizations up to date. - Social history:: Smoking status: Patient denies any tobacco usage or history of. Screenin:31 Abuse screen: Denies threats or abuse. Nutritional screening: No deficits noted. Tuberculosis screening: No symptoms or risk factors identified. Fall Risk Fall in past 12 months (25 points). No secondary diagnosis (0 pts). IV access (20 points). Ambulatory Aid- None/Bed Rest/Nurse Assist (0 pts). Gait- Normal/Bed Rest/Wheelchair (0 pts) Mental Status- Oriented to own ability (0 pts). Total Haji Fall Scale indicates Low Risk Score (25-44 pts). Side Rails Up X 2 Placed close to Nursing Station Frequent Obs/Assesments occuring Family Present and informed to notify staff if they need to leave bedside. Assessment: 21:40 General: Appears in no apparent distress. comfortable, well groomed, well developed, kl Behavior is calm, cooperative, appropriate for age. Pain: Denies pain. Neuro: Level of Consciousness is awake, alert, obeys commands, Oriented to person, place, time, situation, Junior Accounting Clerk are equal bilaterally Moves all extremities. Speech is normal, Facial symmetry appears normal, Pupils are PERRLA. Cardiovascular: No deficits noted. Respiratory: No deficits noted. Airway is patent Trachea midline Respiratory effort is even, unlabored. GI: No deficits noted. No signs and/or symptoms were reported involving the gastrointestinal system. : No deficits noted. No signs and/or symptoms were reported regarding the genitourinary system. EENT: No deficits noted. No signs and/or symptoms were reported regarding the EENT system. Musculoskeletal: Reports bilateral knee pain. 22:53 Reassessment: No changes from previously documented assessment. Patient and/or family ll3 updated on plan of care and expected duration. Pain level reassessed. Patient is alert, oriented x 3, equal unlabored respirations, skin warm/dry/pink. 01/22 00:54 Reassessment: No changes from previously documented assessment. Patient and/or family ll3 updated on plan of care and expected duration. Pain level reassessed. Patient is alert, oriented x 3, equal unlabored respirations, skin warm/dry/pink. Vital Signs: 01/21 21:33 BP 122 / 63; Pulse 82; Resp 20; Temp 97.9(O); Pulse Ox 100% on R/A; kl 22:31 BP 106 / 65; Pulse 92; Resp 16; Pulse Ox 100% on R/A; kl 22:53 BP 109 / 80; Pulse 92; Resp 24; Pulse Ox 100% on R/A; ll3 01/22 00:08 BP 123 / 71; Pulse 94; Resp 20; Pulse Ox 97% on R/A; kl ED Course: 01/21 21:10 Patient arrived in ED. dt4 21:15 Lamar Urbina MD is Attending Physician. sp3 21:30 Arm band placed on Patient placed in an exam room, on a stretcher, on pulse oximetry. ll3 21:39 Triage completed. kl 21:42 CT Head Brain wo Cont In Process Unspecified. EDMS 21:58 Stroke CXR 1 View In Process Unspecified. EDMS 22:09 Initial lab(s) drawn, by me, sent to lab. Inserted saline lock: 22 gauge in right ll3 antecubital area, using aseptic technique. Blood collected. Missed attempt(s): 22 gauge in left antecubital area. 23:02 Duane Magana MD is Hospitalizing Provider. sp3 01/22 00:30 No provider procedures requiring assistance completed. Patient admitted, IV remains in ll3 place. 00:30 Patient has correct armband on for positive identification. Placed in gown. Bed in low ll3 position. Call light in reach. Side rails up X 1. Adult w/ patient. Administered Medications: 01/21 23:51 Drug: NS 0.9% 500 ml Route: IV; Rate: bolus; Site: right antecubital; ll3 01/22 01:03 Drug: NS 0.9% 1000 ml Route: IV; Rate: 75 ml/hr; Site: right antecubital; Medication: 00:54 VIS not applicable for this client. ll3 Outcome: 01/21 23:03 Decision to Hospitalize by Provider. sp3 01/22 01:25 Admitted to Med/surg accompanied by nurse, via stretcher, room 214, with chart, Report ll3 called to FRANCO Morales Condition: stable Instructed on the need for admit, Demonstrated understanding of instructions. 01:26 Patient left the ED. ll3 Signatures: Dispatcher [employer] EDMS Nevin Summers RN RN kl Patel, Setul, MD MD 3 Bubba Clemons RN RN ll3 Madiha Jones dt4
[2022-01-21 23:17] LABS: Protime INR 1.53
[2022-01-21 23:41] LABS: SARS-CoV-2 Antigen Rapid Res Negative (Negative)
[2022-01-21 23:43] LABS: Blood Morphology Comment NOT SEEN (NOT SEEN); Platelet Estimate DECR; White Blood Cell Scan OK (OK)
[2022-01-21] MEDS ORDERED: NA CHLORIDE 0.9% 500 ML ONE (23:49)
[2022-01-21] MEDS ORDERED: NA CHLORIDE 0.9% 1,000 ML ONE (23:49)
[2022-01-22] MEDS ORDERED: ONDANSETRON 4 MG/2 ML VIAL IV PRN (00:59)
--- NOTE | 2022-01-22 01:16 | P.HP ---
Certification for Inpatient Patient admitted to: Inpatient With expected LOS: >2 Midnights Patient will require the following post-hospital care: None Practitioner: I am a practitioner with admitting privileges, knowledge of patient current condition, hospital course, and medical plan of care. Services: Services provided to patient in accordance with Admission requirements found in Title 42 Section 412.3 of the Code of Federal Regulations <Delio Sommer Nora Cordon - Last Filed: 01/22/22 01:10> Patient History Date of Service: 01/22/22 Reason for admission: Acute renal failure History of Present Illness: 71-year-old male with history of hypertension, hyperlipidemia, GERD presents to the emergency department for altered mental status per family. He reportedly experienced a ground-level fall on the fourth at home and has had declining cognition, slurred speech per family. He was evaluated here in the emergency department his labs demonstrated acute renal failure, mild hyponatremia. His sodium was 128 chloride 97 BUN 34 creatinine 2.96 GFR [address] of his head was negative for acute findings chest x-ray with patchy lung base atelectasis no acute infiltrate suspected. Patient is awake, alert, oriented x4 but very slow to respond which family reports is not his baseline. He denies any recent use of antibiotics or NSAIDs, home meds do include losartan. He reports good oral intake and has not had any urinary issues or reported retention. Admit for further evaluation and management of acute renal failure. - Past Medical/Surgical History -: Hypertension -: Hyperlipidemia -: GERD -: Ankle surgery Psychosocial/ Personal History: Patient is retired and lives at home with his , daughter. - Family History Family History: Reviewed- Non-Contributory - Social History Smoking Status: Never smoker Alcohol use: No CD- Drugs: No Caffeine use: Yes Place of Residence: Home <Delio Sommer - Last Filed: 01/22/22 01:10> Date of Service: 01/22/22 <Duane Magana - Last Filed: 01/22/22 13:51> Allergies No Known Allergies Allergy (Verified 01/22/22 01:34) Review of Systems 10-point ROS is otherwise unremarkable Musculoskeletal: Leg Pain <Delio Sommer - Last Filed: 01/22/22 01:10> Physical Examination - Physical Exam General: Alert, In no apparent distress, Oriented x3, Other (Slow to respond) HEENT: Atraumatic, PERRLA, Mucous membr. moist/pink, EOMI, Sclerae nonicteric Neck: Supple, 2+ carotid pulse no bruit, No LAD, Without JVD or thyroid abnormality Respiratory: Clear to auscultation bilaterally, Normal air movement Cardiovascular: Regular rate/rhythm, Normal S1 S2 Capillary refill: <2 Seconds Gastrointestinal: Normal bowel sounds, No tenderness Musculoskeletal: No tenderness Integumentary: No rashes Neurological: Normal gait, Normal strength at 5/5 x4 extr, Normal tone, Normal affect, Abnormal speech (Slowed speech) - Studies Laboratory Data (last 24 hrs) 01/21/22 22:06: PT 16.8 H, INR 1.53, APTT 29.5 01/21/22 22:06: WBC 5.20, Hgb 12.5 L, Hct 35.3 L, Plt Count 68 L 01/21/22 22:06: Sodium 128 L, Potassium 3.7, BUN 34 H, Creatinine 2.96 H, Glucose 107 H <Delio Sommer - Last Filed: 01/22/22 01:10> - Studies Laboratory Data (last 24 hrs) 01/21/22 22:06: PT 16.8 H, INR 1.53, APTT 29.5 01/21/22 22:06: WBC 5.20, Hgb 12.5 L, Hct 35.3 L, Plt Count 68 L 01/21/22 22:06: Sodium 128 L, Potassium 3.7, BUN 34 H, Creatinine 2.96 H, Glucose 107 H <Duane Magana - Last Filed: 01/22/22 13:51> Assessment and Plan - Plan Assessment: Acute renal failure Acute metabolic encephalopathy likely secondary to acute renal failure Thrombocytopenia Hypertension Hyperlipidemia GERD Plan: Acute renal failure: Nephrology consulted, renal ultrasound ordered. Continue gentle IV fluid overnight. Patient denies any use of NSAID, recent antibiotics or IV contrast exposure, he does appear to take losartan at home although he cannot confirm. Appreciate further input from nephrology. Acute metabolic encephalopathy likely secondary to acute renal failure: Continue as above, will also obtain MRI of the brain to rule out CVA. Thrombocytopenia: Unclear etiology we will check LFTs, monitor CBC. SCDs for DVT prophylaxis. Hypertension: Hold RACHEL/ARB, blood pressure acceptable at this time evaluate need for blood pressure medication during stay. Hyperlipidemia: Continue home medications GERD: Continue home medications DVT PPX: SCDs given thrombocytopenia Code status: Full Discharge Plan: Home Plan to discharge in: 72 Hours - Advance Directives Does patient have a Living Will: No Does patient have a Durable POA for Healthcare: No - Code Status/Comfort Care Code Status Assessed: Yes (Full code) Critical Care: No Time Spent Managing Pts Care (In Minutes): 70 <Delio Sommer - Last Filed: 01/22/22 01:10> Physician Review: Patient Assessed, Agree with Above Assessment and Plan <Duane Magana - Last Filed: 01/22/22 13:51>
[2022-01-22 01:34] VITALS: BMI 28.1
[2022-01-22] MEDS ORDERED: AZITHROMYCIN IV 500 MG in NA CHLORIDE 0.9% 250 ML IVPB SCH (02:00)
[2022-01-22] MEDS ORDERED: CEFTRIAXONE 1000 MG/VIAL ONE (02:15)
[2022-01-22] MEDS ORDERED: NA CHLORIDE 0.9% 50 ML IV ONE (02:16)
[2022-01-22] MEDS: ACETAMINOPHEN 325 MG TABLET PO PRN ×3 (02:20→18:10)
[2022-01-22] MEDS: CEFTRIAXONE 1,000 MG in NA CHLORIDE 0.9% 50 ML IVPB SCH ×2 (02:21→02:45)
[2022-01-22] MEDS: Ringers Lactate 1,000 ML IV SCH ×2 (02:21→14:01)
[2022-01-22 02:37] LABS: Absolute Lymphocytes (CBC) 1.1 K/uL (0.7-4.9); Hematocrit 35.1 % (39.6-49.0); Lymphocytes % 19.9 % (15.3-44.8); MCV 90.4 fL (80-100); MPV 10.6 fL (7.6-11.3); RBC Red Blood Cell Count 3.89 M/uL (4.33-5.43)
[2022-01-22 02:47] LABS: Specific Gravity 1.017 (1.005-1.030); Urine Bilirubin NEGATIVE (Negative); Urine Blood 2+ (Negative); Urine Clarity Turbid (Clear); Urine Color Yellow (Yellow); Urine Glucose NEGATIVE (Negative); Urine Mucus Slight /HPF (None Seen); Urine Protein 1+ (Negative); Urine RBC <5 /HPF (None Seen); Urine Urobilinogen Normal (Normal); Urine pH 5.5 (5.0-7.0)
[2022-01-22 02:58] LABS: Potassium 3.9 mmol/L (3.5-5.1); Protein, Total 7.1 g/dL (6.4-8.2); Thyroid Stimulating Hormone 2.28 uIU/mL (0.360-3.740); Uric Acid 5.9 mg/dL (3.5-7.2)
[2022-01-22] MEDS ORDERED: VANCOMYCIN 1 GM in NA CHLORIDE 0.9% 250 ML IVPB SCH (05:41)
[2022-01-22] MEDS ORDERED: VANCOMYCIN 1.5 GM in NA CHLORIDE 0.9% 500 ML IVPB ONE (06:00)
--- NOTE | 2022-01-22 08:17 | RAD REPORT ---
EXAM DESCRIPTION: US - Renal Ultrasound-Complete - 01/22/2022 2:14 am CLINICAL HISTORY: arf COMPARISON: No comparisons FINDINGS: The right kidney measures 10.4 x 6.1 x 4.5 cm. The left kidney measures 10.2 x 5.6 x 4.3 cm. Cortical thickness is normal. Echogenicity is increased slightly in each kidney likely due to med ical renal disease. No hydronephrosis of either kidney. Kidneys have a lobulated contour. There is a focally more prominent area of lobulation proximally 18 mm in size in the lateral mid right kidney. T his is isoechoic to slightly hypoechoic to the adjacent renal parenchyma. This is probably part of no rmal renal lobulation; however, renal mass cannot be excluded. Follow-up contrast CT abdomen renal protocol study would be recommended. If the patient cannot receiv e IV contrast, MR imaging without contrast could be used for further assessment. Bladder is contracted precluding accurate assessment. IMPRESSION: No hydronephrosis of either kidney. Increased renal parenchymal echogenicity is present most likely medical renal disease. Focal area of isoechoic lobulation 18 mm in size lateral mid kidney may be part of normal lobulation. However, a small mass cannot be excluded. Follow-up contrast CT abdomen renal protocol study would be recommended as follow-up. If the patient cannot receive IV contrast, MR imaging without contrast could be used for further assessment.
[2022-01-22] MEDS ORDERED: AMPICILLIN SODIUM 1 GM in NA CHLORIDE 0.9% 100 ML IVPB SCH (09:00)
[2022-01-22] MEDS: ACYCLOVIR IVPB SCH ×2 (10:40→22:28)
[2022-01-22] MEDS: NA CHLORIDE 0.9% IVPB SCH ×2 (10:40→22:28)
[2022-01-22] MEDS ORDERED: CEFTRIAXONE 2,000 MG in NA CHLORIDE 0.9% 100 ML IV SCH (12:00)
--- NOTE | 2022-01-22 13:14 | RAD REPORT ---
EXAM DESCRIPTION: MRI - Brain Wo Cont - 01/22/2022 12:51 pm CLINICAL HISTORY: Speech changes, AMS Headache, drowsiness, CVA symptomology COMPARISON: Head Brain Wo Cont dated 01/21/2022 TECHNIQUE: Multi-sequence, multiplanar MR imaging of the brain was performed without contrast. FINDINGS: No intracranial hemorrhage, hydrocephalus or extra-axial fluid collections.Mild generalize d brain atrophy. Minimal chronic microvascular ischemia is present periventricular region. No edema o r shift of midline structures. No findings to suspect brain mass. DWI is negative for acute CVA. Midline structures are normally formed. Mastoid air cells and paranasal sinuses are clear. IMPRESSION: Negative for acute CVA or other acute intracranial abnormality.
--- NOTE | 2022-01-22 13:40 | RAD REPORT ---
EXAM DESCRIPTION: RAD - Chest Single View - 01/22/2022 1:31 pm CLINICAL HISTORY: COPD Chest pain. COMPARISON: Chest Single View dated 01/21/2022 FINDINGS: Portable technique limits examination quality. The lungs are grossly clear. The heart is normal in size. No displaced fractures.Evidence of old left posterior rib fractures. IMPRESSION: No acute intrathoracic process suspected.
--- NOTE | 2022-01-22 13:55 | EKG ---
Test Date: 2022-01-21 Test Time: 21:57:33 Mine Shifter: AUDREY MEASUREMENT RESULTS: Intervals: Rate: 96 AL: 126 QRSD: 74 QT: 332 QTc: 419 [place]: P: 34 AL: 126 QRS: 25 T: 14 INTERPRETIVE STATEMENTS: Normal sinus rhythm Normal ECG No previous ECG available for comparison Electronically Signed On 01-22-22 13:54:21 EDGE WORKER by Stone Valero
--- NOTE | 2022-01-22 14:25 | RAD REPORT ---
EXAM DESCRIPTION: CT - Chest Abd Pelvis Wo Con - 01/22/2022 4:00 am CLINICAL HISTORY: 71 years Male ARF, Fever, possible pneumonia. TECHNIQUE: CT imaging of the chest, abdomen and pelvis without intravenous contrast administration. Sagittal and coronal reconstructed images were performed. The CT study is performed according to ALAR A (as low as reasonably achievable) or ALARA/IMAGE GENTLY, with automatic adjustment of mA and/or kV according to patient size. Performed on: 01/22/2022 at 4:02 AM COMPARISON: Chest x-ray performed on 01/21/2022 FINDINGS: CHEST: Lungs: The lungs are well expanded. There is a focal round area of airspace consolidation with air br onchograms in the posterior right lower lobe concerning for a pneumonic infiltrate. This measures cathy roximately 3.4 x 3.1 cm in cross-sectional diameter. There are additional, occasional small patchy in terstitial and alveolar opacities scattered throughout the lungs. This raises concern for multifocal pneumonia. There are no pleural effusions. There is no pneumothorax. The central airways are patent. Heart: The heart is normal in size. There is no pericardial effusion. There are minimal coronary artery calcifications. Mediastinum: The mediastinum is unremarkable. The mediastinal vessels are normal in caliber and con tour. There are mild atherosclerotic calcifications along the thoracic aorta. Bones: No acute osseous abnormalities are identified. There are old left-sided rib fractures Soft tissues: No focal soft tissue abnormalities are identified. Lymphadenopathy: There are calcified mediastinal lymph nodes consistent with prior granulomatous di sease. ABDOMEN/PELVIS: Liver: The liver is normal in size and configuration. No focal hepatic abnormalities are identified. Liver attenuation is within normal limits. Spleen: The spleen is normal in size, configuration and attenuation. Gallbladder and bile duct: The gallbladder is well distended and unremarkable. There is no biliary ductal dilatation. Pancreas: The pancreas is grossly normal in size and configuration. Adrenal Glands: The adrenal glands are normal in size and configuration. Kidneys: The kidneys are normal in size and configuration. There is no evidence of hydronephrosis. Th ere is no evidence of nephrolithiasis. No definite solid or cystic renal mass lesions are identified. There is stranding of the perinephric fat bilaterally which is nonspecific but can be seen with cell changer low medical renal disease. Stomach: The stomach is grossly normal. There is a xrjxs-xq-vacvfuuv hiatal hernia. Bowel: The bowel gas pattern is non specific and non obstructive. Appendix: The appendix appears to be surgically absent. Free air: There is no evidence of free air. Free fluid: There is no evidence of free fluid. Vasculature: The aorta is normal in caliber and contour. The inferior vena cava is grossly unremarkab le. There are mild atherosclerotic calcifications along the abdominal aorta. Lymphadenopathy: No pathologic lymphadenopathy is identified. Bladder: The bladder is partially distended and smooth in contour. Reproductive: The prostate gland is grossly within normal limits. There are some chronic calcificatio ns present within the prostate gland. Bones: No acute osseous abnormalities are identified. Soft tissues: There are prominent fat-containing bilateral inguinal hernias IMPRESSION: CT CHEST: 1. Focal round area of airspace consolidation with air bronchograms in the posterior right lower lo be concerning for a pneumonic infiltrate. There are additional, occasional small patchy interstitial and alveolar opacities scattered throughout the lungs. This raises concern for multifocal pneumonia. 2. Evidence of prior granulomatous disease. CT SCAN ABDOMEN AND PELVIS: 1. No evidence of acute intra-abdominal or intrapelvic pathology. 2. Vtuqr-yv-omwjqybw hiatal hernia. 3. Stranding of the perinephric fat bilaterally which is nonspecific but can be seen with chronic m edical renal disease. 4. Prominent fat-containing bilateral inguinal hernias. Electronically signed by: Amena Aquino DO 01/22/2022 4:55 AM BIOLOGIST Due to temporary technical issues with the PACS/Fluency reporting system, reports are being signed by the in house radiologists without review as a courtesy to insure prompt reporting. The interpreting radiologist is fully responsible for the content of the report.
--- NOTE | 2022-01-22 15:13 | RAD REPORT ---
EXAM DESCRIPTION: RAD - Lumbar Puncture For Dx - 01/22/2022 2:39 pm CLINICAL HISTORY: Headache, fever, possible meningitis COMPARISON: MRI brain 01/22/2022 TECHNIQUE: The procedure, risks and alternatives to the procedure were discussed with the patient's family member in detail. After answering all questions, both oral and written consent were obtained. Time-out procedure was performed. The patient was placed in an oblique prone position on the fluoroscopic table. The skin of the lower back was prepped and draped in the usual sterile fashion. After anesthetizing the skin and deeper sof t tissues with 1% lidocaine, a 22 gauge needle was advanced into the thecal sac at the L4 level. Intrathecal placement was confirmed. The initial flow CSF was blood tinged. This partially cleared on the second file. The third and fourth vials showed clear CSF. Approximately 6-7 mL total removed. CS F flow through the needle was slow. This can occur in the setting of spinal stenosis or congenitally small central canal. At the conclusion of the procedure, the needle was withdrawn and a sterile bandage placed over the pu ncture site. The patient tolerated the procedure well without immediate complications. Patient was transferred back to the floor for continued care. IMPRESSION: Successful fluoroscopic guided lumbar puncture. All obtained fluid was sent to the lab for studies requested by the referring physician.
--- NOTE | 2022-01-22 15:27 | CON ---
Date of Consultation: 01/22/2022 Reason For Consultation: Elevated BUN and creatinine, rhabdo. History Of Present Illness: This is a 71-year-old gentleman with significant past medical history of hypertension, hyperlipidemia, and GERD, the patient was brought to the emergency room with altered m ental status with elevation in creatinine 2.9 with GFR of 22. Found to have elevation in CK up to 40 00 and pneumonia. The patient was admitted with sepsis, acute kidney injury. The patient was starte d on hydration. Kidney function has been improved, creatinine down from 2.9 to 2.6, GFR up to 25. H is CK has been improved. The patient denied taking any nonsteroidal. No recent contrast exposure. The patient when arrived to the hospital, no hypotension. Past Medical History: Includes; 1.Hypertension. 2.Hyperlipidemia. 3.GERD. Family History: Positive for hypertension. Social History: Denied smoking. Occasional alcohol. Denied drugs abuse. Past Surgical History: Includes ankle surgery. Allergies: NO KNOWN DRUGS ALLERGY. Review of Systems: Head and Neck: No red eye. No ear pain. GI: No nausea. No vomiting. : No polyuria. No dysuria. No hematuria. Cover Maker: Not applicable. Respiratory: No shortness of breath. Cardiovascular: No chest pain. Endocrine: No polydipsia. Skin: No rash. Neuro: Has altered mental status. Musculoskeletal: Body ache with cramp. Medications: Home medications include pantoprazole, losartan, pravastatin. Current medications in [facility] are IV fluid, ampicillin, ceftriaxone. Physical Examination: General: When I saw the patient; the patient is lying in bed, comfortable. Vital Signs: Blood pressure 121/70, pulse of 89, afebrile, T-max 103. Chest: Clear to auscultation. Heart: S1, S2. Regular. Abdomen: Soft, nontender. Extremity: No edema. Neuro: Alert. Pleasantly confused. No focality. Laboratory Data: Sodium 129, potassium 3.9, bicarb 22, BUN 34, creatinine 2.6, GFR 25, uric acid 5.9 , calcium 7.9. CK 1800. Albumin is 3, TSH 2.2. WBC 5.6, H and H 12.5/35.1, platelet of 63. Urinal ysis negative for infection, positive for blood, but negative for RBC, +1 protein. Current Medications: As above. Assessment And Plan: 1.Acute kidney injury, multifactorial, secondary to rhabdomyolysis/prerenal, poor perfusion, ATN, muñoz perimposed with ARB and low blood pressure, on the recovery phase. Obstructive uropathy has been rul ed out. Normal size kidney 10.4/10.2. I am going to go ahead and continue with current IV hydration . Looked to me the patient is still on the dry side. I will give another L of normal saline bolus a nd we will monitor the patient. I am going to go ahead and hold ARB, hold statin given the rhabdomyo lysis and we will send for TSH. We will send for PTH to evaluate the chronicity of the disease. As by reviewing the record back in 2019, creatinine 1.1 with GFR of 63. 2.Hypertension, controlled, currently on the lower side with the presence of acute kidney injury. H old ARB. 3.Hyponatremia, depletional. Change IV fluid to normal saline. We will bolus the patient with norm al saline. I am going to send for cortisol and TSH. 4.Rhabdomyolysis, possible secondary to statin. Discontinue statin. We will start hydration. 5.Hypokalemia. I do not see the need for replacement for the time being. We will follow up. ANALISA/JERI Voice ID: [id number] Report ID: [id number]
[2022-01-22 17:53] LABS: CSF Glucose 59 mg/dL (40-70)
[2022-01-22 18:11] LABS: Appearance SLT. TURBID (CLEAR); Body Fluid Source CSF; Color of fluid Pink (COLORLESS); Fluid Total Volume 6.5 ml
[2022-01-22 18:14] LABS: Body Fluid WBC 0 /mm^3
[2022-01-23] MEDS: ACETAMINOPHEN 325 MG TABLET PO PRN (00:03)
[2022-01-23] MEDS: Ringers Lactate 1,000 ML IV SCH (05:03)
[2022-01-23 05:50] LABS: Albumin 2.7 g/dL (3.4-5.0); Bilirubin Total 0.9 mg/dL (0.2-1.0); Phosphorus 3.1 mg/dL (2.5-4.9); Potassium 3.4 mmol/L (3.5-5.1); Protein, Total 6.5 g/dL (6.4-8.2); Thyroid Stimulating Hormone 1.59 uIU/mL (0.360-3.740); Uric Acid 4.8 mg/dL (3.5-7.2)
[2022-01-23 05:51] LABS: Absolute Lymphocytes (CBC) 0.7 K/uL (0.7-4.9); Hematocrit 31.5 % (39.6-49.0); Lymphocytes % 17.2 % (15.3-44.8); MCV 90.6 fL (80-100); MPV 11.6 fL (7.6-11.3); RBC Red Blood Cell Count 3.47 M/uL (4.33-5.43)
[2022-01-23 06:16] LABS: Blood Morphology Comment NOT SEEN (NOT SEEN); Platelet Estimate DECR
[2022-01-23] MEDS: NA CHLORIDE 0.9% IVPB SCH ×2 (08:33→21:30)
[2022-01-23] MEDS: ACYCLOVIR IVPB SCH ×2 (08:33→21:30)
[2022-01-23] MEDS ORDERED: CEFTRIAXONE 1,000 MG in NA CHLORIDE 0.9% 100 ML IV SCH (09:00)
[2022-01-23] MEDS: Ringers Lactate 1,000 ML with POTASSIUM CL 20 MEQ IV SCH ×6 (12:05→13:29)
[2022-01-23] MEDS: CEFTRIAXONE 1,000 MG in NA CHLORIDE 0.9% 100 ML IVPB SCH (12:25)
--- NOTE | 2022-01-23 13:50 | EEG ---
CHART: [id number] TEST ID#: [id number] DATE OF STUDY: 01/22/2022 THE EEG WAS RECORDED PORTABLE IN THE PATIENT'S ROOM ON A 17 CHANNEL MACHINE. ELECTRODES WERE APPLIED IN THE USUAL MANNER USING THE INTERNATIONAL 10-20 SYSTEM. THE WAKING BACKGROUND RHYTHM IN THIS RECORD CONSISTS OF POORLY DEVELOPED AND POORLY ORGANIZED WAVES OF 7-8 HZ., MAXIMAL IN THE POSTERIOR HEAD REGIONS WHICH ATTENUATE NORMALLY WITH EYE OPENING. LOW-VOLTAGE 18-22 HZ ACTIVITY MIXED WITH MODERATE VOLTAGE 4-6 HZ ACTIVITY IS EXPRESSED IN THE FRONTAL AND CENTRAL REGIONS. THERE ARE NO FOCAL OR LATERALIZING FEATURES. NO EPILEPTIFORM ACTIVITY APPEARS. SLEEP OCCURRED NATURALLY. IN ADDITION NORMAL SLEEP PATTERNS. HYPERVENTILATION WAS NOT PERFORMED. PHOTIC STIMULATION PRODUCED NO DRIVING BILATERALLY. IMPRESSION: THIS IS A MILDLY ABNORMAL AWAKE AND ASLEEP ROUTINE EEG DUE TO A MILDLY SLOW BACKGROUND AND POSTERIOR DOMINANT RHYTHM. THIS IS A NON-SPECIFIC FINDING INDICATING THE PRESENCE OF A MILD DIFFUSE DISTRUBANCE IN CEREBRAL FUNCTION.
[2022-01-23 14:58] LABS: Rheumatoid Factor NEG (NEG)
--- NOTE | 2022-01-23 17:33 | PN ---
Date of Progress Note: 01/23/2022 Subjective: The patient was admitted with acute kidney injury secondary to rhabdo, prerenal. The pa justice was started on aggressive hydration. CK started trending down. Kidney function has been impro donna. The patient still has some hyponatremia and hypokalemia. Physical Examination: Vital Signs: Blood pressure 120/67, pulse of 89, afebrile. The patient had good urine output. Chest: Clear to auscultation. Heart: S1, S2. Regular. Abdomen: Soft, nontender. Extremities: No edema. Neuro: Alert. No focality. Laboratory Data: WBC 4.2, H and H 11.3/31.5, platelet down to 44. Sodium 134, potassium 3.4, bicarb 22, BUN 22, creatinine down to 1.7, GFR of 41. CK 1212. Albumin 2.7. Corrected calcium is 9. Current Medications: The patient on include; 1.Acyclovir. 2.Vancomycin. 3.LR. Assessment And Plan: 1.Acute kidney injury secondary to prerenal, poor perfusion, superimposed with rhabdomyolysis, on e recovery phase. Obstructive uropathy has been ruled out. I am going to continue hydration for the patient. We will follow. PTH was within normal limit, which is in favor of no chronic kidney disea se. 2.Hypertension, controlled, optimal. Continue current treatment. Please avoid RACHEL inhibitor or ARB . 3.Rhabdomyolysis, possible secondary to statin. Keep holding statin. Continue hydration. 4.Hyponatremia, depletional. Continue IV hydration. 5.Hypokalemia. Continue supplement, especially with the presence of rhabdomyolysis. ANALISA/JERI Voice ID: [id number] Report ID: [id number]
[2022-01-23] MEDS ORDERED: VANCOMYCIN 1.5 GM in NA CHLORIDE 0.9% 500 ML IVPB SCH (18:00)
--- NOTE | 2022-01-23 18:24 | P.PN ---
Subjective Date of Service: 01/23/22 Chief Complaint: Acute renal failure No acute events overnight. His neurologic deficits have completely resolved. CSF findings concerning for viral vs autoimmune. Appreciate Neurology recommendations. Review of Systems 10-point ROS is otherwise unremarkable Physical Examination - Vital Signs Temperature: 97.7 F Blood Pressure: 128/73 Pulse: 107 Respirations: 16 Pulse Ox (%): 100 - Physical Exam General: Alert, In no apparent distress, Oriented x3 HEENT: Atraumatic, PERRLA, Mucous membr. moist/pink, EOMI, Sclerae nonicteric Neck: Supple, JVD not distended Respiratory: Clear to auscultation bilaterally, Normal air movement Cardiovascular: No edema, Regular rate/rhythm, Normal S1 S2, No gallops, No rubs, No murmurs Gastrointestinal: Normal bowel sounds, Soft and benign, Non-distended Musculoskeletal: No clubbing Integumentary: No rashes Neurological: Normal speech, Normal strength at 5/5 x4 extr, Normal tone, Sensation intact, Cranial nerves 3-12 intact, Normal affect Assessment And Plan - Plan NIH Stroke Scale 1a. Level of consciousness: 0 - Alert; keenly responsive 1b. LOC questions: 0 - Both questions right 1c. LOC commands: 0 - Performs both tasks 2. Best Gaze: 0 - Normal 3. Visual: 0 - No visual loss 4. Facial Palsy: 0 - Normal symmetry 5a. Motor left arm: 0 - No drift for 10 seconds 5b. Motor right arm: 0 - No drift for 10 seconds 6a. Motor left le - No drift for 5 seconds 6b. Motor right le - No drift for 5 seconds 7. Limb ataxia: 0 - No ataxia 8. Sensory: 0 - Normal; no sensory loss 9. Best Language: 0 - Normal; no aphasia 10. Dysarthria: 0 - Normal 11. Extinction and Inattention: 0 - No abnormality 12. Distal motor function: 0 - No abnormality Total Score: 0 # Acute Multi-focal Pneumonia # Thrombocytopenia possibly secondary to Infection - Evaluation thus far: - Does not meet sepsis criteria at this time - Procalcitonin = pending - CT chest= "1. Focal round area of airspace consolidation with air bronchograms in the posterior right lower lobe concerning for a pneumonic infiltrate. There are additional, occasional small patchy interstitial and alveolar opacities scattered throughout the lungs. This raises concern for multifocal pneumonia." - Management plan: - Consulted Respiratory Therapy - Supplemental oxygen to maintain SpO2 > 92% - Continue Vancomycin + Ceftriaxone - Encouraged incentive spirometry # Delayed Speech/Neurologic Deficit, now resolved # Hypertension # Hyperlipidemia - Neurology consulted and spoke with Dr. Plaza - recommendations appreciated - LP: CSF glucose 59, CSF protein 105 - Per Dr. Plaza, possible viral vs autoimmune etiology - CSF studies ordered per Neuro recs - No neurologic deficits on my exam - NIHSS = 0 - q4hr neurochecks - CT head = "negative non-contrast CT head examination for acute findings." - MRI brain = "negative for acute CVA or other acute intracranial abnormality." - Ordered TTE + carotid Doppler - PT evaluation requested - Ordered risk profile: - Hgb A1c = pending - Lipid panel = TC 90, LDL 32, HDL 17, TG 204 - TSH = 2.28 - Did not start aspirin or clopidogrel given thrombocytopenia - Hold home rosuvastatin given rhabdomyolysis - Started folic acid # Acute Kidney Injury possibly due to Rhabdomyolysis # Possible Renal Mass - Nephrology consulted - recommendations appreciated - Urology consulted - recommendations appreciated - Creatinine = 2.96 -> 2.67 -> 1.76 - CK = 1886 -> 1212 - Urinalysis = 2+ blood, 10-20 hyaline casts - Renal ultrasound = "No hydronephrosis of either kidney. Increased renal parenchymal echogenicity is present most likely medical renal disease. Focal area of isoechoic lobulation 18 mm in size lateral mid kidney may be part of normal lobulation. However, a small mass cannot be excluded. Follow-up contrast CT abdomen renal protocol study would be recommended as follow-up. If the patient cannot receive IV contrast, MR imaging without contrast could be used for further assessment." - IV fluids per Nephrology - Monitor creatinine and urine output - Renally dose medications Duane Magana M.D.
--- NOTE | 2022-01-23 19:55 | RAD REPORT ---
EXAM DESCRIPTION: US - CP - 01/23/2022 7:39 pm CLINICAL HISTORY: slurred speech COMPARISON: <Comparisons> TECHNIQUE: Real-time sonographic evaluation of bilateral carotid and vertebral systems was performed . Roque scale and Doppler interrogation were performed with waveform tracing bilaterally. FINDINGS: Normal high resistance waveforms are noted in both external carotid arteries. The common c arotid arteries and internal carotid arteries show normal low resistance waveforms. Mildly prominent calcified plaquing changes are present in the right carotid bulb and proximal right internal carotid artery. Calcified plaquing in the left bulb and left proximal ICA are present but le ss prominent. Peak systolic velocity in the right ICA is 234 cm/second compared to 109 cm/second on t he left. ICA/CCA ratios are 2.09 on the right and 0.94 the left. Antegrade flow seen in both vertebral arteries. Velocity values and ratios were recorded and are retained in the patient's imaging records. IMPRESSION: Right greater than left calcified plaquing changes in the carotid bulb and proximal ICAs . Right-sided stenosis is estimated at 70% or greater. No significant stenosis on the left.
[2022-01-23 21:13] LABS: RPR (Rapid Plasma Reagin) NON-REACT (NON-REACT)
[2022-01-24] MEDS: Ringers Lactate 1,000 ML with POTASSIUM CL 20 MEQ IV SCH ×2 (01:33)
[2022-01-24 05:52] LABS: Absolute Lymphocytes (CBC) 0.8 K/uL (0.7-4.9); Hematocrit 30.3 % (39.6-49.0); Lymphocytes % 16.1 % (15.3-44.8); MCV 89.2 fL (80-100); MPV 12.4 fL (7.6-11.3)
[2022-01-24 06:02] LABS: Albumin 2.3 g/dL (3.4-5.0); Bilirubin Total 0.7 mg/dL (0.2-1.0); Phosphorus 2.8 mg/dL (2.5-4.9); Potassium 3.7 mmol/L (3.5-5.1); Protein, Total 5.6 g/dL (6.4-8.2)
[2022-01-24 08:01] LABS: Platelet Estimate DECR
[2022-01-24 08:02] LABS: Platelets, Giant FEW PRESENT
[2022-01-24 08:03] LABS: Blood Morphology Comment NOT SEEN (NOT SEEN)
[2022-01-24] MEDS ORDERED: ROSUVASTATIN 10 MG TAB PO SCH (09:00)
[2022-01-24] MEDS ORDERED: HOME MED 1 EA UNK (Rosuvastatin Calcium [Crestor] 20 MG Tablet) PO SCH (09:00)
[2022-01-24] MEDS: NA CHLORIDE 0.9% IVPB SCH ×2 (09:57→21:52)
[2022-01-24] MEDS: FOLIC ACID 1 MG TABLET PO SCH (09:57)
[2022-01-24] MEDS: ACYCLOVIR IVPB SCH ×2 (09:57→21:52)
[2022-01-24] MEDS: CEFTRIAXONE 1,000 MG in NA CHLORIDE 0.9% 100 ML IVPB SCH (09:57)
[2022-01-24] MEDS ORDERED: Ringers Lactate 1,000 ML with POTASSIUM CL 20 MEQ IV SCH ×2 (10:00)
--- NOTE | 2022-01-24 11:27 | P.PN ---
Subjective Date of Service: 01/24/22 Chief Complaint: Acute renal failure No acute events overnight. His neurologic deficits have completely resolved. He reports some mild shortness of breath, which is worse with exertion. Otherwise, he feels that his speech is back to baseline. Review of Systems 10-point ROS is otherwise unremarkable Respiratory: Cough, SOB with Excertion Physical Examination - Vital Signs Temperature: 97.8 F Blood Pressure: 157/80 Pulse: 78 Respirations: 18 Pulse Ox (%): 97 Assessment And Plan - Plan - Physical Exam General: Alert, In no apparent distress, Oriented x3 HEENT: Atraumatic, PERRLA, Mucous membr. moist/pink, EOMI, Sclerae nonicteric Neck: Supple, JVD not distended Respiratory: Clear to auscultation bilaterally, Normal air movement Cardiovascular: No edema, Regular rate/rhythm, Normal S1 S2, No gallops, No rubs, No murmurs Gastrointestinal: Normal bowel sounds, Soft and benign, Non-distended Musculoskeletal: No clubbing Integumentary: No rashes Neurological: Normal speech, Normal strength at 5/5 x4 extr, Normal tone, Sensation intact, Cranial nerves 3-12 intact, Normal affect NIH Stroke Scale 1a. Level of consciousness: 0 - Alert; keenly responsive 1b. LOC questions: 0 - Both questions right 1c. LOC commands: 0 - Performs both tasks 2. Best Gaze: 0 - Normal 3. Visual: 0 - No visual loss 4. Facial Palsy: 0 - Normal symmetry 5a. Motor left arm: 0 - No drift for 10 seconds 5b. Motor right arm: 0 - No drift for 10 seconds 6a. Motor left le - No drift for 5 seconds 6b. Motor right le - No drift for 5 seconds 7. Limb ataxia: 0 - No ataxia 8. Sensory: 0 - Normal; no sensory loss 9. Best Language: 0 - Normal; no aphasia 10. Dysarthria: 0 - Normal 11. Extinction and Inattention: 0 - No abnormality 12. Distal motor function: 0 - No abnormality Total Score: 0 # Severe Sepsis likely secondary to Multifocal Pneumonia # Thrombocytopenia possibly secondary to Infection He met sepsis criteria based on temperature > 100.9 F, HR > 90 bpm, RR > 20 daniel aths/min and the suspected source is pneumonia. Severe sepsis is suspected due to concern for tissue hypoperfusion/organ dysfunction based on creatinine >2.0 mg/dL (without ESRD), platelet count < 100,000, and coagulopathy (INR > 1.5 or aPTT > 60 seconds). - Sepsis order set was initiated - Initial Lactate was 1.6 - Blood cultures drawn before antibiotics were given - Broad spectrum antibiotics started: Vancomycin + Ceftriaxone - In regards to fluids: - 30 mL/kg of IV fluids was not administered given SBP > 90, MAP > 65, lactic acid < 4 - Procalcitonin = 1.49 - CT chest= "1. Focal round area of airspace consolidation with air bronchograms in the posterior right lower lobe concerning for a pneumonic infiltrate. There are additional, occasional small patchy interstitial and alveolar opacities scattered throughout the lungs. This raises concern for multifocal pneumonia." - Consulted Respiratory Therapy - Supplemental oxygen to maintain SpO2 > 92% - Encouraged incentive spirometry # Delayed Speech/Neurologic Deficit, now resolved # Hypertension # Hyperlipidemia - Neurology consulted and spoke with Dr. Plaza - recommendations appreciated - LP: CSF glucose 59, CSF protein 105 - Per Dr. Plaza, possible viral vs autoimmune etiology - CSF studies ordered per Neuro recs - No neurologic deficits on my exam - NIHSS = 0 - q4hr neurochecks - CT head = "negative non-contrast CT head examination for acute findings." - MRI brain = "negative for acute CVA or other acute intracranial abnormality." - Ordered TTE + carotid Doppler - PT evaluation requested - Ordered risk profile: - Hgb A1c = 5.8 % - Lipid panel = TC 90, LDL 32, HDL 17, TG 204 - TSH = 2.28 - Did not start aspirin or clopidogrel given thrombocytopenia - Hold home rosuvastatin given rhabdomyolysis - Started folic acid # Acute Kidney Injury possibly due to Rhabdomyolysis # Possible Renal Mass - Nephrology consulted - recommendations appreciated - Urology consulted - recommendations appreciated - Creatinine = 2.96 -> 2.67 -> 1.76 -> 1.35 - CK = 1886 -> 1212 -> 492 - Urinalysis = 2+ blood, 10-20 hyaline casts - Renal ultrasound = "No hydronephrosis of either kidney. Increased renal parenchymal echogenicity is present most likely medical renal disease. Focal area of isoechoic lobulation 18 mm in size lateral mid kidney may be part of normal lobulation. However, a small mass cannot be excluded. Follow-up contrast CT abdomen renal protocol study would be recommended as follow-up. If the patient cannot receive IV contrast, MR imaging without contrast could be used for further assessment." - IV fluids per Nephrology - Monitor creatinine and urine output - Renally dose medications Duane Magana M.D.
[2022-01-24] MEDS ORDERED: POTASSIUM CL SA 10 MEQ TAB PO ONE (15:00)
--- NOTE | 2022-01-24 15:38 | PN ---
Date of Progress Note: 01/24/2022 Subjective: The patient was admitted with acute kidney injury secondary to rhabdomyolysis, dehydrati on. The patient was started on IV fluid. Kidney function has been improved significantly. The yaneth ent has thrombocytopenia. Physical Examination: Vital Signs: Blood pressure 156/80, pulse of 78, afebrile. The patient had good urine output of mor e than 2 L. Chest: Clear to auscultation. Heart: S1, S2. Regular. Abdomen: Soft, nontender. Extremities: No edema. Neuro: Alert. No focality. Laboratory Data: Hemoglobin 10.8, platelets 46. Sodium 134, potassium 3.7, bicarb 22, BUN 18, creat inine 1.3 GFR of 56, calcium 7.8, phosphorus 2.8. Current Medications: The patient on include; 1.IV fluid. 2.Ceftriaxone. 3.Vancomycin. 4.Tylenol. 5.Folic acid. Assessment And Plan: 1.Acute kidney injury secondary to rhabdomyolysis, recovered, resolved. We will discontinue IV flui d. Keep holding any RACHEL inhibitor or ARB. 2.Rhabdomyolysis, possible secondary to statin. Keep holding statin. Currently, cardiac muscle enz yme is trending down, CK. I will discontinue IV fluid. 3.Hypokalemia. We will supplement. 4.Hyponatremia, depletional, recovered. ANALISA/JERI Voice ID: [id number] Report ID: [id number]
[2022-01-24] MEDS ORDERED: VANCOMYCIN 1.5 GM in NA CHLORIDE 0.9% 500 ML IVPB SCH (18:00)
--- NOTE | 2022-01-24 22:44 | CON ---
Reason For Consultation: Consultation called to rule out meningitis. History Of Present Illness: Mr. Reyes is a 71-year-old patient who was admitted with acute renal alanna lure on 01/22/2022. He has hypertension, dyslipidemia, and gastroesophageal reflux disease, but came with altered mental status apparently, per family. He fell also from a standing position, and the f amily apparently noted declining cognitive functioning. At [facility], he was found to be i n acute renal failure with hyponatremia and creatinine of 2.96. His head CT was negative for any acu te ischemic hemorrhagic findings. The patient reportedly was alert to person, place, time, and situa tion although he was slow to respond to the family, but they felt it was not at baseline. His white blood cell count throughout has remained essentially normal. He did have a bad neutrophils on otherwise his neutrophil count was normal on admission and now 74.6 today. His renal function impr arias. His creatinine is 1.35. Creatine kinase was elevated at 1212, now 492 and his AST improved fr om 90 to 63. He did have a lumbar puncture on admission and his total protein was 105, glucose 59, 0 white blood cells, and red blood cells were 2214 with slight turbidity and pink color. VDRL was don e and is pending. He did receive vancomycin with trough of 6.6. He has negative RPR. COVID test is negative and hepatitis panel is pending. He has miscellaneous sent outs to look for NMDA receptor a ntibody. In addition, HIRAM is pending and other autoimmune antibody studies are pending. The patient is actually back to baseline level of cognitive functioning at the time of my evaluation. He did have an EEG on the and that study showed a mildly slow background, but noted there was a nonspecific finding indicating of a mild diffuse disturbance in cerebral function. An MRI of his br ain on the ruled out the presence of any acute ischemic or hemorrhagic stroke. This study showed mild chronic small vessel ischemic disease. Past Medical History: As noted. Past Surgical History: He had ankle surgery. Family History: Noncontributory. Social History: No current alcohol, tobacco, or IV drug use. Review of Systems: No recent fevers or chills. He has confusion as noted. No myalgias, arthralgias. Physical Examination: Vital Signs: Blood pressure 153/68, pulse 80, respiratory rate 16, temperature 97.9, oxygen saturati on 98%. General: Mr. Reyes is resting comfortably in his room. He has no significant complaints. No pain. No myalgias or arthralgias. No rash. No headache or weight change. No psychiatric issues. Neurologic: He shows no focal deficits in terms of cranial nerves, motor, coordination, or sensation . Assessment: Mr. Reyes is a 71-year-old patient, who was admitted with electrolyte abnormalities and likely dehydration as well, who is now at baseline from his acute renal failure. He likely had encep halopathy related to his renal failure and is now back to baseline level of functioning. The EEG did show a slow background, which is again consistent with his confusion, but that was 3 days ago. Plan: The patient may continue the same course of rehydration to improve renal function. He did hav e mild rhabdomyolysis and that has improved. He has no evidence of brain infection on lumbar punctur e and may stop antibiotics. One consideration is autoimmune encephalopathies and NMDA receptor antib julianne study is pending. Once discharged, he should follow up in Dr. Plaza's clinic in 1 month. JEANNIE/JERI Voice ID: [id number] Report ID: [id number]
[2022-01-25 02:30] VITALS: O2SAT 97
[2022-01-25 05:31] LABS: Hematocrit 31.7 % (39.6-49.0); Lymphocytes % 18.9 % (15.3-44.8); MCV 90.3 fL (80-100); MPV 11.6 fL (7.6-11.3); RBC Red Blood Cell Count 3.51 M/uL (4.33-5.43)
[2022-01-25 05:53] LABS: Potassium 3.5 mmol/L (3.5-5.1)
[2022-01-25 05:54] LABS: Albumin 2.4 g/dL (3.4-5.0); Bilirubin Total 0.8 mg/dL (0.2-1.0); Phosphorus 3.1 mg/dL (2.5-4.9); Protein, Total 5.9 g/dL (6.4-8.2)
--- NOTE | 2022-01-25 07:13 | ECHO ---
HEIGHT: 5 ft 9 in WEIGHT: 190 lb 9.6 oz DATE OF STUDY: 01/24/[address]: Duane Magana MD 2-DIMENSIONAL: YES M.MODE: YES DOPPLER: YES COLOR FLOW: YES TDS: NO PORTABLE: YES DEFINITY: NO BUBBLE STUDY: NO DIAGNOSIS: SLURRED SPEECH CARDIAC HISTORY: CATHERIZATION: SURGERY: PROSTHETIC VALVE: PACEMAKER: MEASUREMENTS (cm) DIASTOLIC (NORMALS) SYSTOLIC (NORMALS) IVSd 1.0 (0.6-1.2) LA Diam 3.5 (1.9-4.0) LVEF 79% LVIDd 3.6 (3.5-5.7) LVIDs 1.9 (2.0-3.5) %FS 47% LVPWd 0.9 (0.6-1.2) Ao Diam 2.6 (2.0-3.7) 2 DIMENSIONAL ASSESSMENT: RIGHT ATRIUM: NORMAL LEFT ATRIUM: NORMAL RIGHT VENTRICLE: NORMAL LEFT VENTRICLE: NORMAL TRICUSPID VALVE: NORMAL MITRAL VALVE: PULMONIC VALVE: NORMAL AORTIC VALVE: NORMAL PERICARDIAL EFFUSION: NONE AORTIC ROOT: NORMAL LEFT VENTRICULAR WALL MOTION: NORMAL DOPPLER/COLOR FLOW: MILD MITRAL REGURGITATION. COMMENTS: NORMAL LEFT VENTRICULAR EJECTION FRACTION 60-65%. NORMAL WALL MOTION. MILD MITRAL REGURGITATION. TECHNOLOGIST: Susan VEGA
--- NOTE | 2022-01-25 08:14 | P.DS ---
Admission Date: 01/22/22 Discharge Date: 01/25/22 Disposition: ROUTINE DISCHARGE Discharge Condition: GOOD Reason for Admission: Acute renal failure Consultations: 1. Neurology 2. Nephrology Hospital Course: DIAGNOSES: # Severe Sepsis likely secondary to Multifocal Pneumonia # Thrombocytopenia possibly secondary to Infection # Delayed Speech/Neurologic Deficit, now resolved # Hypertension # Hyperlipidemia # Acute Kidney Injury possibly due to Rhabdomyolysis # Possible Renal Mass HOSPITAL COURSE: Mr. Tim Reyes is a pleasant 71 year old male with a past medical history significant for hypertension and hyperlipidemia who was admitted to the [facility] on 01/22/2022 for delayed speech. He was admitted to the Medicine service. He underwent a stroke evaluation as well as an evaluation for meningitis given his neurologic deficits. His CT head revealed, "negative non-contrast CT head examination for acute findings." His MRI head revealed, "negative for acute CVA or other acute intracranial abnormality." A lumbar puncture was obtained and revealed a CSF glucose 59, CSF protein 105. Neurology was consulted and he was evaluated by Dr. Plaza. He felt that the CSF studies are likely to represent a viral vs autoimmune etiology of his symptoms. Of note, his carotid ultrasound revealed, "Right greater than left calcified plaquing changes in the carotid bulb and proximal ICAs. Right- sided stenosis is estimated at 70% or greater. No significant stenosis on the left." He was advised to follow-up with Vascular Surgery for a possible carotid endarterectomy. He verbalized understanding and agreed to make this appointment. Since his neurologic deficits have completely resolved, Dr. Plaza has cleared him for discharge from a Neurology standpoint with aspirin and rosuvastatin. Clopidogrel was not started due to his thrombocytopenia. During his evaluation, he was also found to have severe sepsis with multifocal pneumonia and an acute kidney injury. He was treated with IV antibiotics, with significant improvement in his symptoms. Nephrology was consulted for his acute kidney injury and he was evaluated by Dr. Potter. He was found to have rhabdomyolsis, for which he was treated with IV fluids and demonstrated improvement in his renal function. His renal ultrasound revealed, "no hydronephrosis of either kidney. Increased renal parenchymal echogenicity is present most likely medical renal disease. Focal area of isoechoic lobulation 18 mm in size lateral mid kidney may be part of normal lobulation. However, a small mass cannot be excluded. Follow-up contrast CT abdomen renal protocol study would be recommended as follow-up. If the patient cannot receive IV contrast, MR imaging without contrast could be used for further assessment." He was informed of these findings and advised to schedule a follow-up with Urology. He verbalized understanding and agreed to make this appointment. On 01/25/2022, he was seen on morning rounds and deemed medically stable for discharge. He was discharged with instructions to schedule follow-up appointments with his PCP (LISA Aj), with Neurology (Dr. Plaza), with Urology (Dr. Del Toro), and with [facility] Surgery. He was provided prescriptions for cefdinir and azithromycin. He and his family members given the opportunity to ask questions and reported no further questions. Furthermore, all questions were answered to the best of my ability. A copy of this discharge summary will be sent to the above providers to facilitate continuity of care. Today, I personally spent 35 minutes on his case, of which greater than 50% of the time was spent in patient education, counseling, and coordination of care as described above. - Physical Exam General: Alert, In no apparent distress, Oriented x3 HEENT: Atraumatic, PERRLA, Mucous membr. moist/pink, EOMI, Sclerae nonicteric Neck: Supple, JVD not distended Respiratory: Clear to auscultation bilaterally, Normal air movement Cardiovascular: No edema, Regular rate/rhythm, Normal S1 S2, No gallops, No rubs, No murmurs Gastrointestinal: Normal bowel sounds, Soft and benign, Non-distended Musculoskeletal: No clubbing Integumentary: No rashes Neurological: Normal speech, Normal strength at 5/5 x4 extr, Normal tone, Sensation intact, Cranial nerves 3-12 intact, Normal affect NIH Stroke Scale 1a. Level of consciousness: 0 - Alert; keenly responsive 1b. LOC questions: 0 - Both questions right 1c. LOC commands: 0 - Performs both tasks 2. Best Gaze: 0 - Normal 3. Visual: 0 - No visual loss 4. Facial Palsy: 0 - Normal symmetry 5a. Motor left arm: 0 - No drift for 10 seconds 5b. Motor right arm: 0 - No drift for 10 seconds 6a. Motor left le - No drift for 5 seconds 6b. Motor right le - No drift for 5 seconds 7. Limb ataxia: 0 - No ataxia 8. Sensory: 0 - Normal; no sensory loss 9. Best Language: 0 - Normal; no aphasia 10. Dysarthria: 0 - Normal 11. Extinction and Inattention: 0 - No abnormality 12. Distal motor function: 0 - No abnormality Total Score: 0 Vital Signs/Physical Exam: Temp Pulse Resp BP Pulse Ox 97.6 F 85 18 115/64 96 01/25/22 04:00 01/25/22 04:00 01/25/22 04:00 01/25/22 04:00 01/25/22 04:00 Laboratory Data at Discharge: WBC 5.50 K/uL (4.3-10.9) 01/25/22 04:58 Hgb 11.1 g/dL (13.6-17.9) L 01/25/22 04:58 Hct 31.7 % (39.6-49.0) L 01/25/22 04:58 Plt Count 67 K/uL (152-406) L D 01/25/22 04:58 PT 16.8 SECONDS (9.5-12.5) H 01/21/22 22:06 INR 1.53 01/21/22 22:06 APTT 29.5 SECONDS (24.3-36.9) 01/21/22 22:06 Sodium 137 mmol/L (136-145) 01/25/22 04:58 Potassium 3.5 mmol/L (3.5-5.1) 01/25/22 04:58 BUN 16 mg/dL (7-18) 01/25/22 04:58 Creatinine 1.21 mg/dL (0.55-1.3) 01/25/22 04:58 Glucose 97 mg/dL (74-106) 01/25/22 04:58 Uric Acid 4.8 mg/dL (3.5-7.2) 01/23/22 02:55 Phosphorus 3.1 mg/dL (2.5-4.9) 01/25/22 04:58 Total Bilirubin 0.8 mg/dL (0.2-1.0) 01/25/22 04:58 AST 98 U/L (15-37) H 01/25/22 04:58 ALT 69 U/L (12-78) 01/25/22 04:58 Alkaline Phosphatase 51 U/L (45-117) 01/25/22 04:58 Triglycerides 204 mg/dL (<150) H 01/22/22 01:53 Cholesterol 90 mg/dL (<200) 01/22/22 01:53 HDL Cholesterol 17 mg/dL (40-60) L 01/22/22 01:53 Cholesterol/HDL Ratio 5.29 01/22/22 01:53 Home Medications: Losartan Potassium 100 mg PO DAILY 01/22/22 PARoxetine HCl [Paxil] 20 mg PO DAILY 01/22/22 Pantoprazole [Protonix Tab*] 40 mg PO DAILY 01/22/22 Rosuvastatin Calcium [Crestor] 20 mg PO DAILY 01/22/22 Aspirin [Aspirin EC 81 MG] 81 mg PO DAILY #1 01/25/22 Azithromycin Tab [Zithromax*] 250 mg PO ZPAK 5 Days #1 zaheer 01/25/22 Cefdinir [Cefdinir*] 300 mg PO BID 5 Days #10 cap 01/25/22 New Medications: Aspirin [Aspirin EC 81 MG] 81 mg PO DAILY #1 Cefdinir [Cefdinir*] 300 mg PO BID 5 Days #10 cap Azithromycin Tab [Zithromax*] 250 mg PO ZPAK 5 Days #1 zaheer Physician Discharge Instructions: 1. Please schedule a follow-up appointment with your PCP (Dr. Fisher) in 3-5 days 2. Please schedule a follow-up appointment with Nephrology (Dr. Potter) in 5-7 days 3. Please schedule a follow-up appointment with Neurology (Dr. Plaza) in 5-7 days 4. Please schedule a follow-up appointment with Urology (Dr. Del Toro) in 5-7 days 5. Please schedule a follow-up appointment with [facility] Vascular Surgery in 5-7 days Diet: AHA Activity: Ad ayush Followup: Luz Potter MD [ACTIVE - CAN ADMIT] - 1 Week (Please call to make an appointment.) Theo Plaza MD [ASSOCIATE-ACTIVE - CAN ADMIT] - 1 Week (Please call to make an appointment. ) Bindu Fisher DO [ACTIVE - CAN ADMIT] - 1 Week (Please call to make an appointment. ) Sae Del Toro [ACTIVE - CAN ADMIT] - Time spent managing pt's care (in minutes): 35
[2022-01-25] MEDS: NA CHLORIDE 0.9% IVPB SCH (09:00)
[2022-01-25] MEDS: CEFTRIAXONE 1,000 MG in NA CHLORIDE 0.9% 100 ML IVPB SCH (09:00)
[2022-01-25] MEDS: ACYCLOVIR IVPB SCH (09:00)
[2022-01-25] MEDS: FOLIC ACID 1 MG TABLET PO SCH (09:21)
[2022-01-25 11:10] VITALS: BP 109/72; TEMP 97.2
[2022-01-25 19:58] LABS: Hepatitis C Virus RNA (PCR)log <1.18 log IU/mL
[2022-01-26 07:52] LABS: HIV AG/AB 4TH GEN Non-reactive (Non-reactive)
[2022-01-26 12:16] LABS: HBsAG Nonreactive (Nonreactive)
[2022-01-28 14:20] LABS: Vitamin D 1,25-Dihydroxy Total 54 pg/mL (18-72); Vitamin D,1,25-OH2, D2 <8 pg/mL
== END 2022-01-25 10:09 | disposition home or self-care (01) | DRG 871 ==
LOC: ER 21:07 → ERHOLD 01-22 00:23 → 2ND 01-22 00:41 → 3RD-ICU 01-22 08:52 → 2ND 01-22 09:54
PROVIDERS: ADMIT Internal Medicine; ATTEND Internal Medicine
PROC: 009U3ZX Drainage of Spinal Canal, Percutaneous Approach, Diagnostic (ICD-10-PCS; principal; 2022-01-22)
DX: A41.9 Sepsis, unspecified organism (principal); G93.41 Metabolic encephalopathy; J18.9 Pneumonia, unspecified organism; N17.9 Acute kidney failure, unspecified; E87.1 Hypo-osmolality and hyponatremia; M62.82 Rhabdomyolysis; R65.20 Severe sepsis without septic shock; I10 Essential (primary) hypertension; E87.6 Hypokalemia; E86.0 Dehydration; K21.9 Gastro-esophageal reflux disease without esophagitis; E78.5 Hyperlipidemia, unspecified; F80.89 Other developmental disorders of speech and language; N28.89 Other specified disorders of kidney and ureter; D69.59 Other secondary thrombocytopenia; R29.818 Other symptoms and signs involving the nervous system; Z79.82 Long term (current) use of aspirin; Z79.899 Other long term (current) drug therapy; Z20.822 Contact with and (suspected) exposure to COVID-19
CPT/HCPCS: 36415; 70450; 70551; 71045; 71250; 74176; 76770; 77003; 80048; 80053; 80061; 80069; 80202; 81001; 82164; 82533; 82550; 82652; 82945; 82947; 83036; 83520; 83605; 83880; 83970; 84132; 84145; 84157; 84300; 84439; 84443; 84484; 84550; 85025; 85610; 85730; 86021; 86038; 86160; 86255; 86317; 86335; 86430; 86592; 86704; 86706; 87040; 87070; 87340; 87389; 87522; 87801; 87804; 87811; 89050; 93005; 93306; 93880; 94010; 95819; J0133; J0290; J0456; J0696; J3370; J3480; J7030; J7040; J7050; J7120